=== PATIENT | male | born 1955 | race Caucasian/White ===

== ENCOUNTER 2019-10-07 15:04 | Inpatient (IN) ==
[2019-10-07] MEDS ORDERED: 0.9 % Sodium Chloride 1,000 ML IVC ONE ×2 (15:17→16:37)
[2019-10-07] MEDS ORDERED: Pantoprazole 40 MG VIAL IVP ONE (15:25)
[2019-10-07] MEDS ORDERED: cefTRIAXone 1,000 MG in Water for inj. (sterile) 10 ML IVP ONE (16:15)
[2019-10-07 16:24] LABS: INR 1.4
[2019-10-07 16:24] LABS: VBG HCO3 28 mEq/L (21-27); VBG PCO2 41 mmHg (41-51); VBG PH 7.43 pH Units (7.32-7.42); VBG PO2 55 mmHg (25-50)
[2019-10-07 16:26] LABS: Activated Partial Thrombo Time 28.7 Seconds (26.0-36.0)
[2019-10-07 16:27] LABS: Basophils % 0.2 %; Eosinophils % 0.2 %; Hematocrit 27.4 % (37.5-50.1); Hemoglobin 9.6 g/dL (12.9-16.9)
[2019-10-07 16:29] LABS: Immature Platelets 22.8 % (1.1-6.1); Lymphocytes # 0.7 K/mcL (0.6-4.6); Mean Corpuscular Hemoglobin 37.1 pg (28.0-33.3); Mean Corpuscular Volume 105.8 fL (83.0-100.0); Mean Platelet Volume 12.1 fL (9.4-12.4); Monocytes # 0.5 K/mcL (0.0-1.3); Monocytes % 8.7 %; Neutrophils # 4.9 K/mcL (1.6-8.9); Nucleated Red Blood Cells 4.2 /100 WBC (0); Red Blood Count 2.59 M/mcL (4.19-5.50); Red Cell Distribution Width 14.1 % (11.5-14.5); Segmented Neutrophils % 78.9 %; White Blood Count 6.2 K/mcL (4.3-11.1)
[2019-10-07 16:48] LABS: Acetaminophen < 10 mcg/mL (10-20); Alanine Aminotransferase 44 Units/L (7-52); Albumin 3.4 g/dL (3.5-5.7); Albumin/Globulin Ratio 1.2 (1.1-2.2); Alkaline Phosphatase 136 Units/L (34-104); Aspartate Amino Transferase 150 Units/L (13-39); BUN/Creatinine Ratio 29 (6-26); Bilirubin,Indirect 2.1 mg/dL (0.0-1.0); Bilirubin,Total 5.1 mg/dL (0.3-1.0); Blood Urea Nitrogen 16 mg/dL (8-23); Calcium 8.7 mg/dL (8.6-10.3); Carbon Dioxide 26 mEq/L (23-29); Chloride 88 mEq/L (98-107); Creatine Kinase 139 Units/L (30-223); Ethanol < 10 mg/dL (Less than 10); Globulin 2.8 g/dL (2.4-3.5); Glucose 138 mg/dL (70-105); Lipase 283 Units/L (11-82); Magnesium 1.6 mg/dL (1.6-2.6); Osmolality,Calculated 271 (280-300); Potassium 2.3 mEq/L (3.5-5.1); Sodium 129 mEq/L (136-145); Total Protein 6.2 g/dL (6.4-8.9); Troponin I 0.05 ng/mL (< 0.04); eGFR For African Americans > 60 (> 60); eGFR For Non-African Americans > 60 (> 60)
[2019-10-07 16:53] LABS: Platelet Count 88 K/mcL (140-400)
[2019-10-07 16:54] LABS: Large Platelets Present (Not Present); Platelet Estimate Decreased (Normal)
[2019-10-07] MEDS ORDERED: Potassium Effervescent 25 MEQ TABLET.EFF PO ONE (17:23)
[2019-10-07] MEDS ORDERED: Naloxone 0.4 MG/ML INJ IVP PRN (17:36)
[2019-10-08 02:16] LABS: Basophils % 0.2 %; Eosinophils % 0.5 %
[2019-10-08 02:18] LABS: Hematocrit 23.7 % (37.5-50.1); Immature Granulocytes % 1.1 % (0-4); Immature Platelets 18.2 % (1.1-6.1); Lymphocytes # 0.7 K/mcL (0.6-4.6); Lymphocytes % 11.3 %; Mean Corpuscular HGB Conc 33.8 g/dL (31.6-35.5); Mean Corpuscular Hemoglobin 35.9 pg (28.0-33.3); Mean Corpuscular Volume 106.3 fL (83.0-100.0); Mean Platelet Volume 12.2 fL (9.4-12.4); Monocytes # 0.7 K/mcL (0.0-1.3); Monocytes % 10.3 %; Nucleated Red Blood Cells 2.9 /100 WBC (0); Red Blood Count 2.23 M/mcL (4.19-5.50); Red Cell Distribution Width 14.2 % (11.5-14.5); Segmented Neutrophils % 76.6 %; White Blood Count 6.5 K/mcL (4.3-11.1)
[2019-10-08 02:29] LABS: BUN/Creatinine Ratio 35 (6-26); Blood Urea Nitrogen 14 mg/dL (8-23); Calcium 7.5 mg/dL (8.6-10.3); Carbon Dioxide 23 mEq/L (23-29); Chloride 94 mEq/L (98-107); Glucose 106 mg/dL (70-105); Osmolality,Calculated 271 (280-300); Potassium 2.7 mEq/L (3.5-5.1); Sodium 130 mEq/L (136-145); eGFR For African Americans > 60 (> 60); eGFR For Non-African Americans > 60 (> 60)
[2019-10-08 02:32] LABS: Platelet Count 78 K/mcL (140-400)
[2019-10-08] MEDS: Pantoprazole 40 MG VIAL IVP SCH ×2 (06:17→17:11)
[2019-10-08] MEDS ORDERED: Ondansetron 4 MG/2 ML VIAL IVP PRN (07:31)
[2019-10-08] MEDS ORDERED: *HR* LORazepam 2 MG/ML VIAL IVP PRN (07:40)
[2019-10-08 07:41] LABS: Alanine Aminotransferase 35 Units/L (7-52); Albumin 2.9 g/dL (3.5-5.7); Albumin/Globulin Ratio 1.3 (1.1-2.2); Alkaline Phosphatase 118 Units/L (34-104); Aspartate Amino Transferase 115 Units/L (13-39); Bilirubin,Direct 2.7 mg/dL (0.0-0.2); Bilirubin,Indirect 1.7 mg/dL (0.0-1.0); Bilirubin,Total 4.4 mg/dL (0.3-1.0); Globulin 2.2 g/dL (2.4-3.5); Total Protein 5.1 g/dL (6.4-8.9)
[2019-10-08 09:04] LABS: Bilirubin,Urine Moderate (Negative); Blood,Urine Large (Negative); Clarity,Urine Turbid (Clear); Color,Urine Brown (Yellow); Glucose,Urine (UA) Normal (Normal); Ketones,Urine 40 mg/dL (Negative); Leukocyte Esterase,Urine Moderate (Negative); Nitrite,Urine Negative (Negative); Protein,Urine 100 mg/dL (Neg-Trace); Urobilinogen,Urine >=8.0 mg/dL (Normal)
[2019-10-08] MEDS ORDERED: Magnesium Sulfate 1 GM/102 ML PIGGYBACK IVPB ONE (09:05)
[2019-10-08 09:09] LABS: Amorphous Sediment,Urine Few per hpf (None-Few)
[2019-10-08 09:12] LABS: Bacteria,Urine Moderate per hpf (None-Few); RBC,Urine TNTC per hpf (0-3); Squamous Epithelial Cell,Urine Few per hpf (None-Few)
[2019-10-08] MEDS: Thiamine (B-1) 100 MG TABLET PO SCH (09:58)
[2019-10-08] MEDS: Folic Acid 1 MG TABLET PO SCH (09:58)
[2019-10-08] MEDS: Vitamin B Complex/Vit C/Vit E 1 EACH TABLET PO SCH (09:58)
[2019-10-08] MEDS: traZODone 50 MG TABLET PO PRN (21:50)
[2019-10-08] MEDS: Gabapentin 300 MG CAPSULE PO SCH (21:50)
[2019-10-09 01:04] LABS: Basophils % 0.3 %; Eosinophils # 0.1 K/mcL (0.0-0.6); Eosinophils % 0.9 %; Hematocrit 21.6 % (37.5-50.1); Hemoglobin 7.7 g/dL (12.9-16.9); Immature Granulocytes % 1.5 % (0-4); Lymphocytes # 1.3 K/mcL (0.6-4.6); Lymphocytes % 16.2 %; Mean Corpuscular HGB Conc 35.6 g/dL (31.6-35.5); Mean Corpuscular Hemoglobin 38.1 pg (28.0-33.3); Mean Corpuscular Volume 106.9 fL (83.0-100.0); Mean Platelet Volume 11.6 fL (9.4-12.4); Monocytes # 1.1 K/mcL (0.0-1.3); Monocytes % 13.6 %; Neutrophils # 5.3 K/mcL (1.6-8.9); Nucleated Red Blood Cells 3.3 /100 WBC (0); Red Blood Count 2.02 M/mcL (4.19-5.50); Red Cell Distribution Width 14.2 % (11.5-14.5); Segmented Neutrophils % 67.5 %; White Blood Count 7.8 K/mcL (4.3-11.1)
[2019-10-09 01:05] LABS: Platelet Count 77 K/mcL (140-400)
[2019-10-09 01:15] LABS: BUN/Creatinine Ratio 29 (6-26); Blood Urea Nitrogen 15 mg/dL (8-23); Calcium 7.7 mg/dL (8.6-10.3); Carbon Dioxide 24 mEq/L (23-29); Chloride 97 mEq/L (98-107); Glucose 91 mg/dL (70-105); Osmolality,Calculated 274 (280-300); Potassium 3.4 mEq/L (3.5-5.1); Sodium 132 mEq/L (136-145); eGFR For African Americans > 60 (> 60); eGFR For Non-African Americans > 60 (> 60)
[2019-10-09] MEDS ORDERED: Potassium Chloride 20 MEQ, Lidocaine 1% 2 ML in 0.9 % Sodium Chloride 250 ML IVPB ONE (04:00)
[2019-10-09] MEDS: Pantoprazole 40 MG VIAL IVP SCH ×2 (06:56→17:27)
[2019-10-09] MEDS ORDERED: *HR* Propofol 200 MG/20 ML VIAL IVP ONE (07:45)
[2019-10-09] MEDS ORDERED: Lidocaine -MPF 2% 2 ML VIAL ONE (07:45)
[2019-10-09] MEDS ORDERED: Perflutren Lipid Microsphere 1.3 ML in 0.9 % Sodium Chloride 8.7 ML IVP PRN (08:45)
[2019-10-09] MEDS: Gabapentin 300 MG CAPSULE PO SCH ×3 (08:56→22:59)
[2019-10-09] MEDS: Thiamine (B-1) 100 MG TABLET PO SCH (08:56)
[2019-10-09] MEDS: Vitamin B Complex/Vit C/Vit E 1 EACH TABLET PO SCH (08:56)
[2019-10-09] MEDS: Folic Acid 1 MG TABLET PO SCH (08:57)
[2019-10-09 09:10] LABS: Troponin I 0.03 ng/mL (< 0.04)
[2019-10-09 10:54] LABS: Magnesium 1.6 mg/dL (1.6-2.6)
[2019-10-09] MEDS: traZODone 50 MG TABLET PO PRN (22:59)
[2019-10-10 01:59] LABS: Basophils % 0.6 %; Eosinophils # 0.1 K/mcL (0.0-0.6); Eosinophils % 1.1 %; Hematocrit 20.7 % (37.5-50.1); Hemoglobin 7.1 g/dL (12.9-16.9); Immature Granulocytes % 4.7 % (0-4); Lymphocytes # 1.4 K/mcL (0.6-4.6); Lymphocytes % 19.9 %; Mean Corpuscular HGB Conc 34.3 g/dL (31.6-35.5); Mean Corpuscular Hemoglobin 37.8 pg (28.0-33.3); Mean Corpuscular Volume 110.1 fL (83.0-100.0); Mean Platelet Volume 11.5 fL (9.4-12.4); Monocytes # 1.1 K/mcL (0.0-1.3); Monocytes % 15.5 %; Neutrophils # 4.1 K/mcL (1.6-8.9); Nucleated Red Blood Cells 7.6 /100 WBC (0); Platelet Count 113 K/mcL (140-400); Red Blood Count 1.88 M/mcL (4.19-5.50); Segmented Neutrophils % 58.2 %; White Blood Count 7.1 K/mcL (4.3-11.1)
[2019-10-10 02:09] LABS: INR 1.3; Prothrombin Time 14.2 Seconds (9.4-12.1)
[2019-10-10 02:20] LABS: Anisocytosis 1+ (Not Present); Large Platelets Present (Not Present); Macrocytosis Present (Not Present); Platelet Estimate Slight Decrease (Normal); Polychromasia 1+ (Not Present)
[2019-10-10 02:37] LABS: Alanine Aminotransferase 42 Units/L (7-52); Albumin 2.7 g/dL (3.5-5.7); Albumin/Globulin Ratio 1.2 (1.1-2.2); Alkaline Phosphatase 144 Units/L (34-104); Aspartate Amino Transferase 149 Units/L (13-39); BUN/Creatinine Ratio 33 (6-26); Bilirubin,Total 3.3 mg/dL (0.3-1.0); Blood Urea Nitrogen 13 mg/dL (8-23); Calcium 8.2 mg/dL (8.6-10.3); Carbon Dioxide 27 mEq/L (23-29); Chloride 99 mEq/L (98-107); Globulin 2.3 g/dL (2.4-3.5); Glucose 100 mg/dL (70-105); Magnesium 1.8 mg/dL (1.6-2.6); Osmolality,Calculated 276 (280-300); Phosphorous < 1.0 mg/dL (2.7-4.5); Potassium 3.3 mEq/L (3.5-5.1); Sodium 133 mEq/L (136-145); eGFR For African Americans > 60 (> 60); eGFR For Non-African Americans > 60 (> 60)
[2019-10-10] MEDS: Pantoprazole 40 MG VIAL IVP SCH ×2 (05:17→17:55)
[2019-10-10] MEDS ORDERED: Potassium Phosphate 44 MEQ in 0.9 % Sodium Chloride 250 ML IVPB ONE ×2 (07:29→15:49)
[2019-10-10] MEDS ORDERED: 0.9 % Sodium Chloride 250 ML ONE (08:42)
[2019-10-10 14:29] LABS: Hematocrit 24.8 % (37.5-50.1); Hemoglobin 8.2 g/dL (12.9-16.9); Mean Corpuscular HGB Conc 33.1 g/dL (31.6-35.5); Mean Corpuscular Hemoglobin 37.1 pg (28.0-33.3); Mean Corpuscular Volume 112.2 fL (83.0-100.0); Mean Platelet Volume 10.9 fL (9.4-12.4); Platelet Count 113 K/mcL (140-400); Red Blood Count 2.21 M/mcL (4.19-5.50); Red Cell Distribution Width 17.5 % (11.5-14.5); Segmented Neutrophils % 63.5 %; White Blood Count 6.4 K/mcL (4.3-11.1)
[2019-10-10 14:30] LABS: Basophils % 0.6 %; Eosinophils # 0.1 K/mcL (0.0-0.6); Eosinophils % 0.9 %; Lymphocytes # 0.9 K/mcL (0.6-4.6); Lymphocytes % 14.2 %; Monocytes # 1.1 K/mcL (0.0-1.3); Monocytes % 17.8 %; Neutrophils # 4.1 K/mcL (1.6-8.9); Nucleated Red Blood Cells 5.9 /100 WBC (0)
[2019-10-10 14:53] LABS: Alanine Aminotransferase 44 Units/L (7-52); Albumin 2.7 g/dL (3.5-5.7); Albumin/Globulin Ratio 1.2 (1.1-2.2); Alkaline Phosphatase 150 Units/L (34-104); Aspartate Amino Transferase 155 Units/L (13-39); BUN/Creatinine Ratio 31 (6-26); Blood Urea Nitrogen 11 mg/dL (8-23); Calcium 7.8 mg/dL (8.6-10.3); Carbon Dioxide 27 mEq/L (23-29); Chloride 102 mEq/L (98-107); Globulin 2.3 g/dL (2.4-3.5); Glucose 90 mg/dL (70-105); Osmolality,Calculated 281 (280-300); Phosphorous 1.8 mg/dL (2.7-4.5); Potassium 3.2 mEq/L (3.5-5.1); Sodium 136 mEq/L (136-145); eGFR For African Americans > 60 (> 60); eGFR For Non-African Americans > 60 (> 60)
[2019-10-10 14:54] LABS: % Iron Saturation 16 % (20-55); Iron 33 mcg/dL (65-175); Transferrin 147 mg/dL (203-362)
[2019-10-10 15:08] LABS: Anisocytosis 1+ (Not Present); Macrocytosis Present (Not Present); Platelet Estimate Decreased (Normal); Polychromasia 1+ (Not Present)
[2019-10-10 15:13] LABS: Ferritin 1023 ng/mL (20-250)
[2019-10-10 15:21] LABS: Hepatitis B Surface Antigen Nonreactive (Nonreactive)
[2019-10-10 15:22] LABS: ABG Base Excess 3 mEq/L (-2 to 3); ABG HCO3 27 mEq/L (21-27); ABG Oxygen Saturation 93 % (95-98); ABG PCO2 40 mmHg (35-45); ABG PH 7.44 pH Units (7.32-7.45); ABG PO2 63 mmHg (85-104); ABG TCO2 28 mEq/L (20-26)
[2019-10-10 15:51] LABS: Hepatitis B Core IgM Nonreactive (Nonreactive)
[2019-10-10 15:54] LABS: Hepatitis A Antibody IgM Nonreactive (Nonreactive)
[2019-10-10] MEDS ORDERED: Lidocaine -MPF 2% 2 ML VIAL ONE (16:58)
[2019-10-10] MEDS ORDERED: *HR* Propofol 200 MG/20 ML VIAL IVP ONE (17:00)
[2019-10-10] MEDS: Folic Acid 1 MG TABLET PO SCH (17:44)
[2019-10-10] MEDS: Gabapentin 300 MG CAPSULE PO SCH ×3 (17:45→22:05)
[2019-10-10] MEDS: Thiamine (B-1) 100 MG TABLET PO SCH (17:46)
[2019-10-10] MEDS: Vitamin B Complex/Vit C/Vit E 1 EACH TABLET PO SCH (17:46)
[2019-10-10 19:21] LABS: Hepatitis C Virus Antibody Reactive (Nonreactive)
[2019-10-10 19:27] LABS: Hemoglobin 9.8 g/dL (12.9-16.9)
[2019-10-10] MEDS: Lactulose Oral Soln 20 GM/30 ML UDC PO SCH (22:05)
[2019-10-10 23:07] LABS: Hematocrit 26.8 % (37.5-50.1); Hemoglobin 8.8 g/dL (12.9-16.9)
[2019-10-11 02:46] LABS: Hemoglobin 8.8 g/dL (12.9-16.9); Mean Corpuscular Volume 107.6 fL (83.0-100.0); Platelet Count 111 K/mcL (140-400); Red Cell Distribution Width 20.6 % (11.5-14.5); Segmented Neutrophils % 58.3 %
[2019-10-11 02:48] LABS: Basophils # 0.1 K/mcL (0.0-0.2); Basophils % 0.7 %; Eosinophils # 0.1 K/mcL (0.0-0.6); Eosinophils % 0.7 %; Hematocrit 26.9 % (37.5-50.1); Immature Granulocytes % 2.8 % (0-4); Immature Platelets 11.7 % (1.1-6.1); Lymphocytes # 1.2 K/mcL (0.6-4.6); Lymphocytes % 17.2 %; Mean Corpuscular HGB Conc 32.7 g/dL (31.6-35.5); Mean Corpuscular Hemoglobin 35.2 pg (28.0-33.3); Mean Platelet Volume 11.4 fL (9.4-12.4); Monocytes # 1.5 K/mcL (0.0-1.3); Monocytes % 20.3 %; Neutrophils # 4.2 K/mcL (1.6-8.9); Nucleated Red Blood Cells 2.9 /100 WBC (0); White Blood Count 7.2 K/mcL (4.3-11.1)
[2019-10-11 03:11] LABS: Alanine Aminotransferase 47 Units/L (7-52); Albumin 2.6 g/dL (3.5-5.7); Albumin/Globulin Ratio 1.1 (1.1-2.2); Alkaline Phosphatase 144 Units/L (34-104); Aspartate Amino Transferase 160 Units/L (13-39); BUN/Creatinine Ratio 26 (6-26); Bilirubin,Total 2.8 mg/dL (0.3-1.0); Blood Urea Nitrogen 11 mg/dL (8-23); Calcium 7.3 mg/dL (8.6-10.3); Carbon Dioxide 24 mEq/L (23-29); Chloride 105 mEq/L (98-107); Globulin 2.3 g/dL (2.4-3.5); Glucose 96 mg/dL (70-105); Magnesium 1.6 mg/dL (1.6-2.6); Osmolality,Calculated 281 (280-300); Phosphorous 3.2 mg/dL (2.7-4.5); Potassium 4.1 mEq/L (3.5-5.1); Sodium 136 mEq/L (136-145); Total Protein 4.9 g/dL (6.4-8.9); eGFR For African Americans > 60 (> 60); eGFR For Non-African Americans > 60 (> 60)
[2019-10-11 03:29] LABS: Anisocytosis 2+ (Not Present); Macrocytosis Present (Not Present); Platelet Estimate Slight Decrease (Normal); Polychromasia 1+ (Not Present)
[2019-10-11] MEDS: Pantoprazole 40 MG VIAL IVP SCH ×2 (05:07→18:36)
[2019-10-11] MEDS: Thiamine (B-1) 100 MG TABLET PO SCH (08:24)
[2019-10-11] MEDS: Vitamin B Complex/Vit C/Vit E 1 EACH TABLET PO SCH (08:24)
[2019-10-11] MEDS: Folic Acid 1 MG TABLET PO SCH (08:25)
[2019-10-11] MEDS: Gabapentin 300 MG CAPSULE PO SCH ×3 (08:25→21:14)
[2019-10-11] MEDS: Lactulose Oral Soln 20 GM/30 ML UDC PO SCH ×2 (08:25→21:14)
[2019-10-11 14:20] LABS: Hematocrit 27.5 % (37.5-50.1)
[2019-10-12 01:20] LABS: Eosinophils # 0.1 K/mcL (0.0-0.6); Hematocrit 27.5 % (37.5-50.1); Hemoglobin 8.7 g/dL (12.9-16.9); Mean Corpuscular HGB Conc 31.6 g/dL (31.6-35.5); Mean Corpuscular Hemoglobin 35.4 pg (28.0-33.3); Mean Corpuscular Volume 111.8 fL (83.0-100.0); Mean Platelet Volume 11.3 fL (9.4-12.4); Nucleated Red Blood Cells 0.6 /100 WBC (0); Platelet Count 130 K/mcL (140-400); Red Blood Count 2.46 M/mcL (4.19-5.50); Red Cell Distribution Width 21.7 % (11.5-14.5); White Blood Count 6.3 K/mcL (4.3-11.1)
[2019-10-12 01:28] LABS: INR 1.3
[2019-10-12 01:33] LABS: Alanine Aminotransferase 46 Units/L (7-52); Albumin 2.7 g/dL (3.5-5.7); Albumin/Globulin Ratio 1.2 (1.1-2.2); Alkaline Phosphatase 132 Units/L (34-104); Aspartate Amino Transferase 139 Units/L (13-39); BUN/Creatinine Ratio 20 (6-26); Bilirubin,Total 2.8 mg/dL (0.3-1.0); Blood Urea Nitrogen 7 mg/dL (8-23); Calcium 7.4 mg/dL (8.6-10.3); Carbon Dioxide 22 mEq/L (23-29); Chloride 107 mEq/L (98-107); Globulin 2.3 g/dL (2.4-3.5); Glucose 87 mg/dL (70-105); Osmolality,Calculated 279 (280-300); Potassium 4.2 mEq/L (3.5-5.1); Sodium 136 mEq/L (136-145); eGFR For African Americans > 60 (> 60); eGFR For Non-African Americans > 60 (> 60)
[2019-10-12 02:08] LABS: Anisocytosis 2+ (Not Present); Lymphocytes # 2.3 K/mcL (0.6-4.6); Macrocytosis Present (Not Present); Monocytes # 0.1 K/mcL (0.0-1.3); Neutrophils # 3.8 K/mcL (1.6-8.9); Platelet Estimate Normal (Normal); Polychromasia 1+ (Not Present)
[2019-10-12] MEDS: Pantoprazole 40 MG VIAL IVP SCH (06:04)
[2019-10-12] MEDS ORDERED: Calcium Gluconate 1gm/50mL 1 GM/50 ML BAG IVPB ONE (10:15)
[2019-10-12] MEDS ORDERED: *HR* Propofol 500 MG/50 ML BOTTLE IVP ONE (10:45)
[2019-10-12] MEDS ORDERED: 0.9 % Sodium Chloride 10 ML PF VIAL IR ONE (10:45)
[2019-10-12] MEDS ORDERED: Ondansetron 4 MG/2 ML VIAL IVP ONE (10:45)
[2019-10-12] MEDS ORDERED: Lidocaine -MPF 2% 5 ML VIAL SQ ONE (10:45)
[2019-10-12] MEDS: Thiamine (B-1) 100 MG TABLET PO SCH (16:04)
[2019-10-12] MEDS: Vitamin B Complex/Vit C/Vit E 1 EACH TABLET PO SCH (16:04)
[2019-10-12] MEDS: Folic Acid 1 MG TABLET PO SCH (16:04)
[2019-10-12] MEDS: Gabapentin 300 MG CAPSULE PO SCH ×3 (16:05→20:47)
[2019-10-12] MEDS: Lactulose Oral Soln 20 GM/30 ML UDC PO SCH ×2 (16:05→20:47)
[2019-10-12 16:44] LABS: Magnesium 1.7 mg/dL (1.6-2.6); Phosphorous 2.6 mg/dL (2.7-4.5)
[2019-10-13 06:43] LABS: Basophils # 0.1 K/mcL (0.0-0.2); Basophils % 0.6 %; Eosinophils % 0.5 %; Hematocrit 29.7 % (37.5-50.1); Hemoglobin 9.6 g/dL (12.9-16.9); Lymphocytes # 1.2 K/mcL (0.6-4.6); Lymphocytes % 14.5 %; Mean Corpuscular HGB Conc 32.3 g/dL (31.6-35.5); Mean Corpuscular Volume 108.4 fL (83.0-100.0); Mean Platelet Volume 12.5 fL (9.4-12.4); Monocytes # 1.7 K/mcL (0.0-1.3); Monocytes % 20.3 %; Neutrophils # 5.2 K/mcL (1.6-8.9); Nucleated Red Blood Cells 0.2 /100 WBC (0); Platelet Count 118 K/mcL (140-400); Red Blood Count 2.74 M/mcL (4.19-5.50); Red Cell Distribution Width 20.4 % (11.5-14.5); Segmented Neutrophils % 63.1 %; White Blood Count 8.3 K/mcL (4.3-11.1)
[2019-10-13 07:01] LABS: BUN/Creatinine Ratio 14 (6-26); Blood Urea Nitrogen 5 mg/dL (8-23); Calcium 8.2 mg/dL (8.6-10.3); Carbon Dioxide 22 mEq/L (23-29); Chloride 106 mEq/L (98-107); Glucose 100 mg/dL (70-105); Osmolality,Calculated 273 (280-300); Potassium 4.5 mEq/L (3.5-5.1); Sodium 133 mEq/L (136-145); eGFR For African Americans > 60 (> 60); eGFR For Non-African Americans > 60 (> 60)
[2019-10-13 07:02] LABS: Magnesium 1.4 mg/dL (1.6-2.6); Phosphorous 2.5 mg/dL (2.7-4.5)
[2019-10-13 08:10] LABS: Macrocytosis Present (Not Present); Platelet Estimate Normal (Normal)
[2019-10-13] MEDS: Lactulose Oral Soln 20 GM/30 ML UDC PO SCH ×2 (08:15→21:26)
[2019-10-13] MEDS: Thiamine (B-1) 100 MG TABLET PO SCH (08:18)
[2019-10-13] MEDS: Gabapentin 300 MG CAPSULE PO SCH ×3 (08:18→21:25)
[2019-10-13] MEDS: Folic Acid 1 MG TABLET PO SCH (08:18)
[2019-10-13] MEDS: Vitamin B Complex/Vit C/Vit E 1 EACH TABLET PO SCH (08:18)
[2019-10-13 10:43] LABS: AFP Tumor Marker Non-Pregnant 8 ng/mL (0-9); ANA IgG by ELISA NONE DETECTED (None Detected); F-Actin (sm muscle) Ab IgG 8 Units (0-19)
[2019-10-13 10:51] LABS: Serine Protease-3 Antibody 1 AU/mL (0-19)
[2019-10-14] MEDS: Gabapentin 300 MG CAPSULE PO SCH ×3 (09:39→20:35)
[2019-10-14] MEDS: Folic Acid 1 MG TABLET PO SCH (09:40)
[2019-10-14] MEDS: Thiamine (B-1) 100 MG TABLET PO SCH (09:40)
[2019-10-14] MEDS: Lactulose Oral Soln 20 GM/30 ML UDC PO SCH ×2 (09:40→20:35)
[2019-10-14] MEDS: Vitamin B Complex/Vit C/Vit E 1 EACH TABLET PO SCH (09:40)
[2019-10-15 01:51] LABS: Hematocrit 31.4 % (37.5-50.1)
[2019-10-15] MEDS: Gabapentin 300 MG CAPSULE PO SCH ×3 (08:21→19:47)
[2019-10-15] MEDS: Vitamin B Complex/Vit C/Vit E 1 EACH TABLET PO SCH (08:21)
[2019-10-15] MEDS: Lactulose Oral Soln 20 GM/30 ML UDC PO SCH ×2 (08:22→19:47)
[2019-10-15] MEDS: Folic Acid 1 MG TABLET PO SCH (08:22)
[2019-10-15] MEDS: Thiamine (B-1) 100 MG TABLET PO SCH (08:22)
[2019-10-15 14:34] LABS: Bilirubin,Urine Negative (Negative); Blood,Urine Negative (Negative); Clarity,Urine Clear (Clear); Color,Urine Yellow (Yellow); Glucose,Urine (UA) Normal (Normal); Ketones,Urine Negative (Negative); Leukocyte Esterase,Urine Negative (Negative); Nitrite,Urine Negative (Negative); Protein,Urine Negative (Neg-Trace); Specific Gravity,Urine 1.013 (1.010-1.025)
[2019-10-16] MEDS: Folic Acid 1 MG TABLET PO SCH (07:53)
[2019-10-16] MEDS: Vitamin B Complex/Vit C/Vit E 1 EACH TABLET PO SCH (07:53)
[2019-10-16] MEDS: Thiamine (B-1) 100 MG TABLET PO SCH (07:53)
[2019-10-16] MEDS: Lactulose Oral Soln 20 GM/30 ML UDC PO SCH ×2 (07:53→22:55)
[2019-10-16] MEDS: Gabapentin 300 MG CAPSULE PO SCH ×3 (07:53→22:57)
[2019-10-17 07:41] VITALS: BP 120/83
[2019-10-17] MEDS: Lactulose Oral Soln 20 GM/30 ML UDC PO SCH (09:57)
[2019-10-17] MEDS: Folic Acid 1 MG TABLET PO SCH (09:57)
[2019-10-17] MEDS: Vitamin B Complex/Vit C/Vit E 1 EACH TABLET PO SCH (09:57)
[2019-10-17] MEDS: Thiamine (B-1) 100 MG TABLET PO SCH (09:57)
[2019-10-17] MEDS: Gabapentin 300 MG CAPSULE PO SCH (09:57)
== END 2019-10-17 12:18 | DRG 378 ==
LOC: 2ANU 15:04 → EMEROOARM 15:04 → SUATTDRO 17:29 → 2ANU 18:39 → SUATTDRO 10-09 14:18
PROVIDERS: ADMIT Internal Medicine; ATTEND Student in an Organized Health Care Education/Training Program
PROC: ENDOEBX (2019-10-10 19:40)

== ENCOUNTER 2019-11-14 14:40 | Observation (INO) ==
[2019-11-14] MEDS ORDERED: Potassium Chloride 40 MEQ, Lidocaine 1% 2 ML in 0.9 % Sodium Chloride 500 ML IVPB ONE (15:15)
[2019-11-14] MEDS ORDERED: Naloxone 0.4 MG/ML INJ IVP PRN (15:19)
[2019-11-14] MEDS ORDERED: Ondansetron ODT 4 MG TAB.RAPDIS SL PRN (15:19)
[2019-11-14 16:00] LABS: BUN/Creatinine Ratio 16 (6-26); Blood Urea Nitrogen 13 mg/dL (8-23); Calcium 8.5 mg/dL (8.6-10.3); Carbon Dioxide 28 mEq/L (23-29); Chloride 99 mEq/L (98-107); Glucose 103 mg/dL (70-105); Magnesium 1.4 mg/dL (1.6-2.6); Osmolality,Calculated 284 (280-300); Potassium 3.2 mEq/L (3.5-5.1); Sodium 137 mEq/L (136-145); eGFR For African Americans > 60 (> 60); eGFR For Non-African Americans > 60 (> 60)
[2019-11-14 16:01] LABS: Albumin 3.9 g/dL (3.5-5.7); Albumin/Globulin Ratio 1.3 (1.1-2.2); Bilirubin,Direct 0.5 mg/dL (0.0-0.2); Bilirubin,Indirect 0.9 mg/dL (0.0-1.0); Bilirubin,Total 1.4 mg/dL (0.3-1.0); Globulin 2.9 g/dL (2.4-3.5); Total Protein 6.8 g/dL (6.4-8.9)
[2019-11-14 18:33] LABS: Eosinophils % 2.3 %; Lymphocytes % 21.6 %
[2019-11-14 18:35] LABS: Basophils % 0.6 %; Eosinophils # 0.1 K/mcL (0.0-0.6); Hematocrit 33.9 % (37.5-50.1); Hemoglobin 11.1 g/dL (12.9-16.9); Immature Granulocytes % 0.2 % (0-4); Immature Platelets 13.1 % (1.1-6.1); Lymphocytes # 1.1 K/mcL (0.6-4.6); Mean Corpuscular HGB Conc 32.7 g/dL (31.6-35.5); Mean Corpuscular Hemoglobin 33.2 pg (28.0-33.3); Mean Corpuscular Volume 101.5 fL (83.0-100.0); Mean Platelet Volume 12.7 fL (9.4-12.4); Monocytes # 0.8 K/mcL (0.0-1.3); Monocytes % 14.8 %; Neutrophils # 3.2 K/mcL (1.6-8.9); Red Blood Count 3.34 M/mcL (4.19-5.50); Red Cell Distribution Width 17.3 % (11.5-14.5); Segmented Neutrophils % 60.5 %; White Blood Count 5.2 K/mcL (4.3-11.1)
[2019-11-14 18:36] LABS: Platelet Count 50 K/mcL (140-400)
[2019-11-14] MEDS: Lactulose Oral Soln 20 GM/30 ML UDC PO SCH (20:43)
[2019-11-15 01:16] LABS: Basophils % 0.4 %; Eosinophils # 0.2 K/mcL (0.0-0.6); Eosinophils % 3.9 %; Hematocrit 33.7 % (37.5-50.1); Hemoglobin 10.7 g/dL (12.9-16.9); Immature Granulocytes % 0.2 % (0-4); Lymphocytes # 1.2 K/mcL (0.6-4.6); Lymphocytes % 25.4 %; Mean Corpuscular HGB Conc 31.8 g/dL (31.6-35.5); Mean Corpuscular Hemoglobin 31.9 pg (28.0-33.3); Mean Corpuscular Volume 100.6 fL (83.0-100.0); Monocytes # 0.4 K/mcL (0.0-1.3); Monocytes % 7.9 %; Red Blood Count 3.35 M/mcL (4.19-5.50); Red Cell Distribution Width 17.5 % (11.5-14.5); Segmented Neutrophils % 62.2 %; White Blood Count 4.6 K/mcL (4.3-11.1)
[2019-11-15 01:22] LABS: Neutrophils # 2.9 K/mcL (1.6-8.9); Platelet Count 59 K/mcL (140-400)
[2019-11-15 01:48] LABS: BUN/Creatinine Ratio 20 (6-26); Blood Urea Nitrogen 12 mg/dL (8-23); Calcium 8.3 mg/dL (8.6-10.3); Carbon Dioxide 23 mEq/L (23-29); Chloride 106 mEq/L (98-107); Glucose 111 mg/dL (70-105); Magnesium 2.7 mg/dL (1.6-2.6); Osmolality,Calculated 286 (280-300); Potassium 3.3 mEq/L (3.5-5.1); Sodium 138 mEq/L (136-145); eGFR For African Americans > 60 (> 60); eGFR For Non-African Americans > 60 (> 60)
[2019-11-15] MEDS ORDERED: Potassium Chloride Elixir 20 MEQ/15 ML UDC PO ONE (07:34)
[2019-11-15 10:15] LABS: Bacteria,Urine Few per hpf (None-Few); Bilirubin,Urine Negative (Negative); Blood,Urine Negative (Negative); Clarity,Urine Clear (Clear); Color,Urine Yellow (Yellow); Glucose,Urine (UA) Normal (Normal); Hyaline Casts,Urine Moderate per lpf (None Seen); Ketones,Urine Negative (Negative); Leukocyte Esterase,Urine Negative (Negative); Mucus,Urine Few per lpf (None-Few); Nitrite,Urine Negative (Negative); Protein,Urine 30 mg/dL (Neg-Trace); RBC,Urine 0-3 per hpf (0-3); Specific Gravity,Urine 1.029 (1.010-1.025); Squamous Epithelial Cell,Urine Few per hpf (None-Few); Urobilinogen,Urine >=8.0 mg/dL (Normal)
[2019-11-15] MEDS ORDERED: Acetaminophen 325 MG TABLET PO ONE (11:06)
[2019-11-15] MEDS: Nicotine 14 MG PATCH.TD24 TD SCH (11:13)
[2019-11-15] MEDS: Gabapentin 300 MG CAPSULE PO SCH ×3 (11:14→21:45)
[2019-11-15] MEDS: Lactulose Oral Soln 20 GM/30 ML UDC PO SCH ×2 (11:14→21:45)
[2019-11-15 11:54] LABS: Amphetamine Screen,Urine Positive ng/mL (Cutoff=1000); Barbiturate Screen,Urine Negative ng/mL (Cutoff=200); Benzodiazepines Screen,Urine Negative ng/mL (Cutoff=200); Cannabinoid Screen,Urine Positive ng/mL (Cutoff = 50); Cocaine Screen,Urine Negative ng/mL (Cutoff= 300); Opiate Screen,Urine Negative ng/mL (Cutoff=300); Phencyclidine Screen,Urine Negative ng/mL (Cutoff=25)
[2019-11-15] MEDS ORDERED: Ketorolac 15 MG/ML VIAL IVP PRN (12:36)
[2019-11-16] MEDS: Lactulose Oral Soln 20 GM/30 ML UDC PO SCH (08:14)
[2019-11-16] MEDS: Nicotine 14 MG PATCH.TD24 TD SCH (08:15)
[2019-11-16] MEDS: Gabapentin 300 MG CAPSULE PO SCH (08:15)
[2019-11-16 11:20] VITALS: BP 136/95
== END 2019-11-16 15:13 | disposition home health service (06) ==
LOC: EMEROOARM 14:40 → 3BNU 14:40 → SUATTDRO 15:33 → 3BNU 16:46
PROVIDERS: ADMIT Pharmacist; ATTEND Internal Medicine

== ENCOUNTER 2019-12-16 02:40 | Inpatient (IN) ==
[2019-12-16 03:11] LABS: INR 1.3; Prothrombin Time 14.4 Seconds (9.4-12.1)
[2019-12-16 03:14] LABS: Activated Partial Thrombo Time 31.1 Seconds (26.0-36.0)
[2019-12-16 03:19] LABS: Amphetamine Screen,Urine Positive ng/mL (Cutoff=1000); Barbiturate Screen,Urine Negative ng/mL (Cutoff=200); Benzodiazepines Screen,Urine Negative ng/mL (Cutoff=200); Cannabinoid Screen,Urine Positive ng/mL (Cutoff = 50); Cocaine Screen,Urine Negative ng/mL (Cutoff= 300); Opiate Screen,Urine Negative ng/mL (Cutoff=300); Phencyclidine Screen,Urine Negative ng/mL (Cutoff=25)
[2019-12-16 03:20] LABS: Acetaminophen < 10 mcg/mL (10-20); Salicylate < 2.5 mg/dL (15.0-30.0)
[2019-12-16 03:30] LABS: Bilirubin,Urine Large (Negative); Blood,Urine Trace-intact (Negative); Clarity,Urine Clear (Clear); Color,Urine Amber (Yellow); Glucose,Urine (UA) 100 mg/dL (Normal); Ketones,Urine 40 mg/dL (Negative); Leukocyte Esterase,Urine Negative (Negative); Nitrite,Urine Positive (Negative); PH,Urine 6.5 pH Units (5.0-8.0); Protein,Urine 100 mg/dL (Neg-Trace); Specific Gravity,Urine 1.015 (1.010-1.025); Urobilinogen,Urine >=8.0 mg/dL (Normal)
[2019-12-16 03:31] LABS: RBC,Urine 0-3 per hpf (0-3); Squamous Epithelial Cell,Urine Few per hpf (None-Few)
[2019-12-16 03:32] LABS: Bacteria,Urine Few per hpf (None-Few); Hyaline Casts,Urine Few per lpf (None Seen)
[2019-12-16 03:34] LABS: Alanine Aminotransferase 21 Units/L (7-52); Albumin 3.9 g/dL (3.5-5.7); Albumin/Globulin Ratio 1.2 (1.1-2.2); Alkaline Phosphatase 106 Units/L (34-104); Aspartate Amino Transferase 78 Units/L (13-39); BUN/Creatinine Ratio 17 (6-26); Bilirubin,Direct 0.7 mg/dL (0.0-0.2); Bilirubin,Indirect 1.2 mg/dL (0.0-1.0); Bilirubin,Total 1.9 mg/dL (0.3-1.0); Blood Urea Nitrogen 16 mg/dL (8-23); Calcium 8.5 mg/dL (8.6-10.3); Carbon Dioxide 25 mEq/L (23-29); Chloride 88 mEq/L (98-107); Ethanol < 10 mg/dL (Less than 10); Globulin 3.3 g/dL (2.4-3.5); Glucose 65 mg/dL (70-105); Osmolality,Calculated 271 (280-300); Potassium 3.1 mEq/L (3.5-5.1); Sodium 131 mEq/L (136-145); Total Protein 7.2 g/dL (6.4-8.9); Troponin I < 0.03 ng/mL (< 0.04); eGFR For African Americans > 60 (> 60); eGFR For Non-African Americans > 60 (> 60)
[2019-12-16 03:35] LABS: Thyroid Stimulating Hormone 3.896 mcIU/mL (0.340-5.600)
[2019-12-16 03:58] LABS: Eosinophils % 0.1 %; Immature Granulocytes % 0.3 % (0-4); Monocytes % 8.7 %
[2019-12-16 04:00] LABS: Basophils % 0.1 %; Hematocrit 37.9 % (37.5-50.1); Hemoglobin 12.8 g/dL (12.9-16.9); Immature Platelets 19.9 % (1.1-6.1); Lymphocytes % 12.9 %; Mean Corpuscular HGB Conc 33.8 g/dL (31.6-35.5); Mean Corpuscular Hemoglobin 31.1 pg (28.0-33.3); Mean Corpuscular Volume 92.2 fL (83.0-100.0); Monocytes # 0.7 K/mcL (0.0-1.3); Neutrophils # 6.1 K/mcL (1.6-8.9); Red Blood Count 4.11 M/mcL (4.19-5.50); Red Cell Distribution Width 16.2 % (11.5-14.5); Segmented Neutrophils % 77.9 %; White Blood Count 7.8 K/mcL (4.3-11.1)
[2019-12-16 04:29] LABS: Platelet Count 21 K/mcL (140-400)
[2019-12-16 04:34] LABS: Platelet Estimate Decreased (Normal)
[2019-12-16] MEDS ORDERED: cefTRIAXone 1,000 MG in 0.9 % Sodium Chloride Mini Bag 100 ML IVPB ONE (06:07)
[2019-12-16] MEDS ORDERED: 0.9 % Sodium Chloride 1,000 ML IVC ONE (10:40)
[2019-12-16] MEDS: Lactulose Oral Soln 20 GM/30 ML UDC PO SCH ×2 (11:02→19:20)
[2019-12-16] MEDS: Folic Acid 1 MG TABLET PO SCH (11:03)
[2019-12-17] MEDS: cefTRIAXone 1,000 MG in Water for inj. (sterile) 10 ML IVP SCH (08:39)
[2019-12-17] MEDS: Lactulose Oral Soln 20 GM/30 ML UDC PO SCH ×2 (08:39→20:12)
[2019-12-17] MEDS: Folic Acid 1 MG TABLET PO SCH (08:39)
[2019-12-17] MEDS ORDERED: traZODone 50 MG TABLET PO SCH (09:00)
[2019-12-17 09:31] LABS: Basophils % 0.5 %; Eosinophils # 0.1 K/mcL (0.0-0.6); Eosinophils % 1.4 %; Hematocrit 38.4 % (37.5-50.1); Hemoglobin 12.9 g/dL (12.9-16.9); Immature Granulocytes % 0.2 % (0-4); Immature Platelets 20.8 % (1.1-6.1); Lymphocytes % 22.4 %; Mean Corpuscular HGB Conc 33.6 g/dL (31.6-35.5); Mean Corpuscular Hemoglobin 31.1 pg (28.0-33.3); Mean Corpuscular Volume 92.5 fL (83.0-100.0); Monocytes # 0.4 K/mcL (0.0-1.3); Monocytes % 9.8 %; Neutrophils # 2.9 K/mcL (1.6-8.9); Red Blood Count 4.15 M/mcL (4.19-5.50); Red Cell Distribution Width 16.1 % (11.5-14.5); Segmented Neutrophils % 65.7 %; White Blood Count 4.4 K/mcL (4.3-11.1)
[2019-12-17 09:35] LABS: Platelet Count 22 K/mcL (140-400)
[2019-12-17 09:50] LABS: Alanine Aminotransferase 16 Units/L (7-52); Albumin 3.4 g/dL (3.5-5.7); Albumin/Globulin Ratio 1.2 (1.1-2.2); Alkaline Phosphatase 117 Units/L (34-104); Aspartate Amino Transferase 52 Units/L (13-39); BUN/Creatinine Ratio 19 (6-26); Bilirubin,Direct 0.2 mg/dL (0.0-0.2); Bilirubin,Indirect 0.7 mg/dL (0.0-1.0); Bilirubin,Total 0.9 mg/dL (0.3-1.0); Blood Urea Nitrogen 12 mg/dL (8-23); Calcium 8.9 mg/dL (8.6-10.3); Carbon Dioxide 28 mEq/L (23-29); Chloride 96 mEq/L (98-107); Globulin 2.8 g/dL (2.4-3.5); Glucose 101 mg/dL (70-105); Osmolality,Calculated 276 (280-300); Potassium 3.4 mEq/L (3.5-5.1); Sodium 133 mEq/L (136-145); Total Protein 6.2 g/dL (6.4-8.9); eGFR For African Americans > 60 (> 60); eGFR For Non-African Americans > 60 (> 60)
[2019-12-17] MEDS ORDERED: Potassium Chloride Elixir 20 MEQ/15 ML UDC PO ONE (11:22)
[2019-12-18 03:35] LABS: Basophils % 0.5 %; Hemoglobin 12.1 g/dL (12.9-16.9); Red Cell Distribution Width 16.2 % (11.5-14.5)
[2019-12-18 03:38] LABS: Eosinophils # 0.1 K/mcL (0.0-0.6); Eosinophils % 1.1 %; Hematocrit 35.3 % (37.5-50.1); Immature Granulocytes % 0.2 % (0-4); Immature Platelets 18.3 % (1.1-6.1); Lymphocytes # 0.9 K/mcL (0.6-4.6); Mean Corpuscular HGB Conc 34.3 g/dL (31.6-35.5); Mean Corpuscular Hemoglobin 31.5 pg (28.0-33.3); Mean Corpuscular Volume 91.9 fL (83.0-100.0); Monocytes # 0.5 K/mcL (0.0-1.3); Monocytes % 10.9 %; Neutrophils # 2.9 K/mcL (1.6-8.9); Red Blood Count 3.84 M/mcL (4.19-5.50); Segmented Neutrophils % 66.3 %; White Blood Count 4.4 K/mcL (4.3-11.1)
[2019-12-18 03:57] LABS: Platelet Count 26 K/mcL (140-400)
[2019-12-18 06:35] LABS: BUN/Creatinine Ratio 18 (6-26); Blood Urea Nitrogen 11 mg/dL (8-23); Calcium 9.1 mg/dL (8.6-10.3); Carbon Dioxide 25 mEq/L (23-29); Chloride 99 mEq/L (98-107); Glucose 99 mg/dL (70-105); Osmolality,Calculated 271 (280-300); Potassium 4.1 mEq/L (3.5-5.1); Sodium 131 mEq/L (136-145); eGFR For African Americans > 60 (> 60); eGFR For Non-African Americans > 60 (> 60)
[2019-12-18] MEDS: Folic Acid 1 MG TABLET PO SCH (07:33)
[2019-12-18] MEDS: cefTRIAXone 1,000 MG in Water for inj. (sterile) 10 ML IVP SCH (07:34)
[2019-12-18] MEDS: Lactulose Oral Soln 20 GM/30 ML UDC PO SCH (07:34)
[2019-12-18 13:28] LABS: % Iron Saturation 10 % (20-55); Iron 36 mcg/dL (65-175); Transferrin 252 mg/dL (203-362)
[2019-12-18 13:45] LABS: Ferritin 147 ng/mL (20-250)
[2019-12-18 13:53] LABS: Folate > 22.3 ng/mL (3.0-16.0); Vitamin B12 277 pg/mL (250-1100)
[2019-12-18 15:00] VITALS: BP 150/94
[2019-12-18] MEDS ORDERED: traZODone 50 MG TABLET PO SCH (21:00)
== END 2019-12-18 19:12 | disposition home or self-care (01) | DRG 689 ==
LOC: 3ANU 02:40 → EMEROOARM 02:40 → SUATTDRO 06:28 → 3ANU 06:49
PROVIDERS: ADMIT Internal Medicine; ATTEND Internal Medicine

== ENCOUNTER 2019-12-21 11:36 | Observation (INO) ==
[2019-12-21 12:15] LABS: VBG HCO3 24 mEq/L (21-27); VBG PCO2 36 mmHg (41-51); VBG PH 7.43 pH Units (7.32-7.42); VBG PO2 38 mmHg (25-50)
[2019-12-21 12:36] LABS: Alanine Aminotransferase 101 Units/L (7-52); Albumin 4.3 g/dL (3.5-5.7); Albumin/Globulin Ratio 1.2 (1.1-2.2); Alkaline Phosphatase 106 Units/L (34-104); Aspartate Amino Transferase 218 Units/L (13-39); BUN/Creatinine Ratio 5 (6-26); Bilirubin,Direct 0.3 mg/dL (0.0-0.2); Bilirubin,Indirect 0.4 mg/dL (0.0-1.0); Bilirubin,Total 0.7 mg/dL (0.3-1.0); Blood Urea Nitrogen 3 mg/dL (8-23); Calcium 9.4 mg/dL (8.6-10.3); Carbon Dioxide 23 mEq/L (23-29); Chloride 99 mEq/L (98-107); Globulin 3.5 g/dL (2.4-3.5); Glucose 95 mg/dL (70-105); Lipase 25 Units/L (11-82); Osmolality,Calculated 276 (280-300); Potassium 3.3 mEq/L (3.5-5.1); Sodium 135 mEq/L (136-145); Total Protein 7.8 g/dL (6.4-8.9); Troponin I < 0.03 ng/mL (< 0.04); eGFR For African Americans > 60 (> 60); eGFR For Non-African Americans > 60 (> 60)
[2019-12-21 13:00] LABS: Eosinophils # 0.1 K/mcL (0.0-0.6); Hematocrit 42.7 % (37.5-50.1); Mean Corpuscular HGB Conc 32.8 g/dL (31.6-35.5); Mean Corpuscular Hemoglobin 29.6 pg (28.0-33.3); Mean Corpuscular Volume 90.3 fL (83.0-100.0); Mean Platelet Volume 10.6 fL (9.4-12.4); Platelet Count 164 K/mcL (140-400); Red Blood Count 4.73 M/mcL (4.19-5.50); Red Cell Distribution Width 16.6 % (11.5-14.5); White Blood Count 4.9 K/mcL (4.3-11.1)
[2019-12-21 13:05] LABS: Monocytes # 0.8 K/mcL (0.0-1.3); Neutrophils # 2.1 K/mcL (1.6-8.9)
[2019-12-21 13:06] LABS: Anisocytosis 1+ (Not Present); Platelet Estimate Normal (Normal); Poikilocytosis 1+ (Not Present)
[2019-12-21 16:31] LABS: Amphetamine Screen,Urine Positive ng/mL (Cutoff=1000); Barbiturate Screen,Urine Negative ng/mL (Cutoff=200); Benzodiazepines Screen,Urine Negative ng/mL (Cutoff=200); Cannabinoid Screen,Urine Negative ng/mL (Cutoff = 50); Cocaine Screen,Urine Negative ng/mL (Cutoff= 300); Opiate Screen,Urine Negative ng/mL (Cutoff=300); Phencyclidine Screen,Urine Negative ng/mL (Cutoff=25)
[2019-12-21 16:56] LABS: Acetaminophen < 10 mcg/mL (10-20); Ethanol 313 mg/dL (Less than 10); Salicylate < 2.5 mg/dL (15.0-30.0)
[2019-12-21] MEDS ORDERED: 0.9 % Sodium Chloride 1,000 ML IVC ONE (17:13)
[2019-12-21] MEDS ORDERED: *HR* LORazepam 1 MG TABLET PO ONE (17:27)
[2019-12-21] MEDS ORDERED: *HR* LORazepam 2 MG/ML VIAL IVP PRN ×3 (18:09)
[2019-12-21] MEDS ORDERED: *HR* Promethazine 25 MG/ML VIAL IM PRN (18:17)
[2019-12-21] MEDS ORDERED: Naloxone 0.4 MG/ML INJ IVP PRN (18:17)
[2019-12-21] MEDS: Thiamine (B-1) 100 MG TABLET PO SCH (18:57)
[2019-12-21] MEDS: Folic Acid 1 MG TABLET PO SCH (18:57)
[2019-12-21] MEDS: Vitamin B Complex/Vit C/Vit E 1 EACH TABLET PO SCH (18:57)
[2019-12-21] MEDS: Famotidine 20 MG/2 ML VIAL IVP SCH (18:58)
[2019-12-21] MEDS: Nicotine 21 MG PATCH.TD24 TD SCH (18:59)
[2019-12-21] MEDS: Levalbuterol Neb 1.25 MG/3 ML IH SCH ×2 (19:41→23:48)
[2019-12-22 00:10] LABS: Bilirubin,Urine Negative (Negative); Blood,Urine Negative (Negative); Clarity,Urine Clear (Clear); Color,Urine Light-Yellow (Yellow); Glucose,Urine (UA) Normal (Normal); Ketones,Urine Negative (Negative); Leukocyte Esterase,Urine Negative (Negative); Nitrite,Urine Negative (Negative); PH,Urine 6.5 pH Units (5.0-8.0); Protein,Urine Negative (Neg-Trace); Specific Gravity,Urine 1.005 (1.010-1.025); Urobilinogen,Urine Normal (Normal)
[2019-12-22 02:00] LABS: Hematocrit 38.8 % (37.5-50.1); Hemoglobin 13.3 g/dL (12.9-16.9); Mean Corpuscular HGB Conc 34.3 g/dL (31.6-35.5); Mean Corpuscular Hemoglobin 30.9 pg (28.0-33.3); Mean Corpuscular Volume 90.2 fL (83.0-100.0); Mean Platelet Volume 10.5 fL (9.4-12.4); Platelet Count 153 K/mcL (140-400); Red Cell Distribution Width 16.7 % (11.5-14.5); White Blood Count 4.9 K/mcL (4.3-11.1)
[2019-12-22 02:12] LABS: BUN/Creatinine Ratio 7 (6-26); Blood Urea Nitrogen 4 mg/dL (8-23); Calcium 8.8 mg/dL (8.6-10.3); Carbon Dioxide 21 mEq/L (23-29); Chloride 104 mEq/L (98-107); Chol/HDL Ratio 3.2 (0-4.9); Cholesterol 151 mg/dL (< 200); Glucose 92 mg/dL (70-105); HDL Cholesterol 47 mg/dL (40-59); LDL Cholesterol,Calculated 86 mg/dL (< 100); Magnesium 1.2 mg/dL (1.6-2.6); Osmolality,Calculated 281 (280-300); Phosphorous 2.9 mg/dL (2.7-4.5); Potassium 3.8 mEq/L (3.5-5.1); Sodium 137 mEq/L (136-145); Triglycerides 91 mg/dL (< 150); eGFR For African Americans > 60 (> 60); eGFR For Non-African Americans > 60 (> 60)
[2019-12-22] MEDS: traZODone 50 MG TABLET PO SCH ×2 (02:15→20:54)
[2019-12-22] MEDS: Levalbuterol Neb 1.25 MG/3 ML IH SCH ×3 (03:41→10:55)
[2019-12-22] MEDS: Famotidine 20 MG/2 ML VIAL IVP SCH (05:21)
[2019-12-22] MEDS: *HR* Heparin 5,000 UNIT/ML VIAL SQ SCH ×2 (05:22→16:48)
[2019-12-22] MEDS ORDERED: Magnesium Sulfate 1 GM/102 ML PIGGYBACK IVPB ONE (07:54)
[2019-12-22] MEDS: Folic Acid 1 MG TABLET PO SCH (08:06)
[2019-12-22] MEDS: Vitamin B Complex/Vit C/Vit E 1 EACH TABLET PO SCH (08:06)
[2019-12-22] MEDS: Thiamine (B-1) 100 MG TABLET PO SCH (08:06)
[2019-12-22] MEDS ORDERED: Levalbuterol Neb 1.25 MG/3 ML IH PRN (10:51)
[2019-12-22] MEDS: Nicotine 21 MG PATCH.TD24 TD SCH (20:53)
[2019-12-22] MEDS: Lactulose Oral Soln 20 GM/30 ML UDC PO SCH (20:55)
[2019-12-23 02:33] LABS: Hematocrit 38.2 % (37.5-50.1); Hemoglobin 12.5 g/dL (12.9-16.9); Mean Corpuscular HGB Conc 32.7 g/dL (31.6-35.5); Mean Corpuscular Hemoglobin 30.8 pg (28.0-33.3); Mean Corpuscular Volume 94.1 fL (83.0-100.0); Mean Platelet Volume 10.7 fL (9.4-12.4); Platelet Count 130 K/mcL (140-400); Red Blood Count 4.06 M/mcL (4.19-5.50); Red Cell Distribution Width 16.8 % (11.5-14.5); White Blood Count 3.6 K/mcL (4.3-11.1)
[2019-12-23 02:57] LABS: Alanine Aminotransferase 48 Units/L (7-52); Albumin 3.5 g/dL (3.5-5.7); Albumin/Globulin Ratio 1.2 (1.1-2.2); Alkaline Phosphatase 94 Units/L (34-104); Aspartate Amino Transferase 67 Units/L (13-39); BUN/Creatinine Ratio 15 (6-26); Bilirubin,Total 0.7 mg/dL (0.3-1.0); Blood Urea Nitrogen 9 mg/dL (8-23); Calcium 8.8 mg/dL (8.6-10.3); Carbon Dioxide 25 mEq/L (23-29); Chloride 100 mEq/L (98-107); Globulin 2.9 g/dL (2.4-3.5); Glucose 95 mg/dL (70-105); Magnesium 1.4 mg/dL (1.6-2.6); Osmolality,Calculated 272 (280-300); Potassium 3.9 mEq/L (3.5-5.1); Sodium 132 mEq/L (136-145); Total Protein 6.4 g/dL (6.4-8.9); eGFR For African Americans > 60 (> 60); eGFR For Non-African Americans > 60 (> 60)
[2019-12-23] MEDS: *HR* Heparin 5,000 UNIT/ML VIAL SQ SCH ×2 (03:49→16:21)
[2019-12-23] MEDS ORDERED: Acetaminophen 325 MG TABLET PO ONE (04:39)
[2019-12-23] MEDS: Thiamine (B-1) 100 MG TABLET PO SCH (09:58)
[2019-12-23] MEDS: Folic Acid 1 MG TABLET PO SCH (09:58)
[2019-12-23] MEDS: Lactulose Oral Soln 20 GM/30 ML UDC PO SCH ×2 (09:58→20:46)
[2019-12-23] MEDS: Vitamin B Complex/Vit C/Vit E 1 EACH TABLET PO SCH (09:58)
[2019-12-23] MEDS ORDERED: Artificial Tears SOLN 15 ML BOTTLE BOTH EYES PRN (13:29)
[2019-12-23] MEDS: Nicotine 21 MG PATCH.TD24 TD SCH (17:50)
[2019-12-23] MEDS: traZODone 50 MG TABLET PO SCH (20:46)
[2019-12-24 01:53] LABS: BUN/Creatinine Ratio 18 (6-26); Blood Urea Nitrogen 10 mg/dL (8-23); Calcium 9.2 mg/dL (8.6-10.3); Carbon Dioxide 24 mEq/L (23-29); Chloride 100 mEq/L (98-107); Glucose 92 mg/dL (70-105); Osmolality,Calculated 275 (280-300); Potassium 4.2 mEq/L (3.5-5.1); Sodium 133 mEq/L (136-145); eGFR For African Americans > 60 (> 60); eGFR For Non-African Americans > 60 (> 60)
[2019-12-24] MEDS: *HR* Heparin 5,000 UNIT/ML VIAL SQ SCH ×2 (05:09→16:29)
[2019-12-24] MEDS: Vitamin B Complex/Vit C/Vit E 1 EACH TABLET PO SCH (07:55)
[2019-12-24] MEDS: Lactulose Oral Soln 20 GM/30 ML UDC PO SCH ×2 (07:55→20:08)
[2019-12-24] MEDS: Thiamine (B-1) 100 MG TABLET PO SCH (07:55)
[2019-12-24] MEDS: Folic Acid 1 MG TABLET PO SCH (07:55)
[2019-12-24] MEDS: Nicotine 21 MG PATCH.TD24 TD SCH (16:29)
[2019-12-24] MEDS: traZODone 50 MG TABLET PO SCH (20:08)
[2019-12-24] MEDS: Acetaminophen 325 MG TABLET PO PRN (22:13)
[2019-12-25] MEDS: *HR* Heparin 5,000 UNIT/ML VIAL SQ SCH (05:23)
[2019-12-25] MEDS: Acetaminophen 325 MG TABLET PO PRN (05:29)
[2019-12-25] MEDS ORDERED: Ondansetron 4 MG/2 ML VIAL IVP PRN (05:31)
[2019-12-25] MEDS: Folic Acid 1 MG TABLET PO SCH (10:07)
[2019-12-25] MEDS: Lactulose Oral Soln 20 GM/30 ML UDC PO SCH (10:07)
[2019-12-25] MEDS: Vitamin B Complex/Vit C/Vit E 1 EACH TABLET PO SCH (10:07)
[2019-12-25] MEDS: Thiamine (B-1) 100 MG TABLET PO SCH (10:07)
[2019-12-25 10:16] LABS: Hematocrit 39.3 % (37.5-50.1); Hemoglobin 12.6 g/dL (12.9-16.9); Mean Corpuscular HGB Conc 32.1 g/dL (31.6-35.5); Mean Corpuscular Hemoglobin 29.7 pg (28.0-33.3); Mean Corpuscular Volume 92.7 fL (83.0-100.0); Mean Platelet Volume 11.6 fL (9.4-12.4); Platelet Count 184 K/mcL (140-400); Red Blood Count 4.24 M/mcL (4.19-5.50); Red Cell Distribution Width 16.7 % (11.5-14.5); White Blood Count 5.2 K/mcL (4.3-11.1)
[2019-12-25 10:29] LABS: BUN/Creatinine Ratio 21 (6-26); Blood Urea Nitrogen 13 mg/dL (8-23); Calcium 10.1 mg/dL (8.6-10.3); Carbon Dioxide 23 mEq/L (23-29); Chloride 100 mEq/L (98-107); Glucose 91 mg/dL (70-105); Osmolality,Calculated 274 (280-300); Potassium 4.5 mEq/L (3.5-5.1); Sodium 132 mEq/L (136-145); eGFR For African Americans > 60 (> 60); eGFR For Non-African Americans > 60 (> 60)
[2019-12-25 15:00] VITALS: BP 120/82
== END 2019-12-25 17:00 | disposition home health service (06) ==
LOC: 3BNU 11:36 → EMEROOARM 11:36 → SUATTDRO 17:59 → 3BNU 18:30
PROVIDERS: ADMIT Family Medicine; ATTEND Internal Medicine

== ENCOUNTER 2020-07-30 08:18 | Observation (INO) ==
[2020-07-30] MEDS ORDERED: Ondansetron 4 MG/2 ML VIAL IVP ONE (08:26)
[2020-07-30] MEDS ORDERED: 0.9 % Sodium Chloride 1,000 ML IVC ONE ×2 (08:26→09:17)
[2020-07-30] MEDS ORDERED: Isovue-370 500 ML BOTTLE IVP ONE ×2 (08:27→08:42)
[2020-07-30] MEDS ORDERED: Pantoprazole 40 MG VIAL IVP ONE (08:45)
[2020-07-30 08:59] LABS: Eosinophils % 0.1 %; Hematocrit 38.8 % (37.5-50.1); Monocytes % 7.3 %; Red Blood Count 4.17 M/mcL (4.19-5.50); Red Cell Distribution Width 18.6 % (11.5-14.5)
[2020-07-30 09:01] LABS: Basophils % 0.3 %; Hemoglobin 12.9 g/dL (12.9-16.9); Immature Granulocytes % 0.6 % (0-4); Immature Platelets 14.5 % (1.1-6.1); Lymphocytes # 1.2 K/mcL (0.6-4.6); Lymphocytes % 10.7 %; Mean Corpuscular HGB Conc 33.2 g/dL (31.6-35.5); Mean Corpuscular Hemoglobin 30.9 pg (28.0-33.3); Monocytes # 0.8 K/mcL (0.0-1.3); White Blood Count 11.3 K/mcL (4.3-11.1)
[2020-07-30] MEDS ORDERED: Octreotide 50 MCG/ML INJ IVP ONE ×2 (09:02→09:34)
[2020-07-30 09:07] LABS: INR 1.2; Prothrombin Time 13.4 Seconds (9.4-12.1)
[2020-07-30] MEDS ORDERED: Octreotide 400 MCG in 0.9 % Sodium Chloride 100 ML IVC SCH (09:15)
[2020-07-30] MEDS ORDERED: Piperacillin/Tazobactam 3.375 GM in 0.9 % Sodium Chloride Mini Bag 100 ML IVPB ONE (09:16)
[2020-07-30 09:20] LABS: Neutrophils # 9.2 K/mcL (1.6-8.9); Platelet Count 85 K/mcL (140-400)
[2020-07-30 09:21] LABS: Large Platelets Present (Not Present); Platelet Estimate Decreased (Normal)
[2020-07-30 09:24] LABS: Alanine Aminotransferase 22 Units/L (7-52); Albumin 4.5 g/dL (3.5-5.7); Albumin/Globulin Ratio 1.4 (1.1-2.2); Alkaline Phosphatase 73 Units/L (34-104); Aspartate Amino Transferase 38 Units/L (13-39); BUN/Creatinine Ratio 54 (6-26); Bilirubin,Direct 0.2 mg/dL (0.0-0.2); Bilirubin,Indirect 0.6 mg/dL (0.0-1.0); Bilirubin,Total 0.8 mg/dL (0.3-1.0); Blood Urea Nitrogen 57 mg/dL (8-23); Calcium 10.3 mg/dL (8.6-10.3); Carbon Dioxide 26 mEq/L (23-29); Chloride 93 mEq/L (98-107); Globulin 3.3 g/dL (2.4-3.5); Glucose 104 mg/dL (70-105); Lipase 24 Units/L (11-82); Osmolality,Calculated 294 (280-300); Potassium 3.6 mEq/L (3.5-5.1); Sodium 134 mEq/L (136-145); Total Protein 7.8 g/dL (6.4-8.9); Troponin I < 0.03 ng/mL (< 0.04); eGFR For African Americans > 60 (> 60); eGFR For Non-African Americans > 60 (> 60)
[2020-07-30] MEDS ORDERED: Vancomycin 1,500 MG/265 ML IV.SOLN IVPB ONE (09:40)
[2020-07-30 09:44] LABS: Bilirubin,Urine Negative (Negative); Blood,Urine Negative (Negative); Clarity,Urine Turbid (Clear); Color,Urine Light-Orange (Yellow); Glucose,Urine (UA) Normal (Normal); Hyaline Casts,Urine Many per lpf (None Seen); Ketones,Urine 10 mg/dL (Negative); Leukocyte Esterase,Urine Negative (Negative); Mucus,Urine Few per lpf (None-Few); Nitrite,Urine Negative (Negative); Protein,Urine 50 mg/dL (Neg-Trace); RBC,Urine 0-3 per hpf (0-3); Renal Epithelial Cells,Urine Few per hpf (None-Few); Specific Gravity,Urine 1.023 (1.010-1.025); Squamous Epithelial Cell,Urine Few per hpf (None-Few); Transitional Epi Cells,Urine Few per hpf (None-Few); Urobilinogen,Urine Normal (Normal); WBC,Urine 0-3 per hpf (0-3)
[2020-07-30] MEDS ORDERED: Naloxone 0.4 MG/ML INJ IVP PRN (11:02)
[2020-07-30] MEDS ORDERED: Lidocaine -MPF 2% 5 ML VIAL ONE (13:38)
[2020-07-30] MEDS ORDERED: *HR* LORazepam 2 MG/ML VIAL IVP PRN ×3 (14:24)
[2020-07-30] MEDS: Pantoprazole 40 MG in 0.9 % Sodium Chloride Mini Bag 100 ML IVC SCH ×2 (15:34→19:54)
[2020-07-30] MEDS: Nicotine 21 MG PATCH.TD24 TD SCH (17:38)
[2020-07-30] MEDS: *HR* OxyCODONE/APAP 5/325 TABLET PO PRN (17:39)
[2020-07-30] MEDS ORDERED: traZODone 50 MG TABLET PO PRN (21:43)
[2020-07-31 00:43] LABS: Basophils % 0.5 %; Eosinophils # 0.1 K/mcL (0.0-0.6); Eosinophils % 1.1 %; Hematocrit 27.2 % (37.5-50.1); Immature Granulocytes % 0.2 % (0-4); Immature Platelets 14.7 % (1.1-6.1); Lymphocytes # 0.8 K/mcL (0.6-4.6); Lymphocytes % 15.1 %; Mean Corpuscular HGB Conc 33.1 g/dL (31.6-35.5); Mean Corpuscular Volume 93.8 fL (83.0-100.0); Monocytes # 0.4 K/mcL (0.0-1.3); Monocytes % 6.4 %; Neutrophils # 4.2 K/mcL (1.6-8.9); Red Cell Distribution Width 18.3 % (11.5-14.5); Segmented Neutrophils % 76.7 %; White Blood Count 5.5 K/mcL (4.3-11.1)
[2020-07-31 00:44] LABS: Platelet Count 43 K/mcL (140-400)
[2020-07-31] MEDS: Pantoprazole 40 MG in 0.9 % Sodium Chloride Mini Bag 100 ML IVC SCH ×2 (00:51→06:11)
[2020-07-31 00:58] LABS: BUN/Creatinine Ratio 43 (6-26); Blood Urea Nitrogen 34 mg/dL (8-23); Calcium 8.2 mg/dL (8.6-10.3); Carbon Dioxide 26 mEq/L (23-29); Chloride 102 mEq/L (98-107); Glucose 103 mg/dL (70-105); Osmolality,Calculated 290 (280-300); Potassium 3.4 mEq/L (3.5-5.1); Sodium 136 mEq/L (136-145); eGFR For African Americans > 60 (> 60); eGFR For Non-African Americans > 60 (> 60)
[2020-07-31] MEDS: Pantoprazole 40 MG VIAL IVP SCH ×2 (09:18→17:23)
[2020-07-31] MEDS: Nicotine 21 MG PATCH.TD24 TD SCH (09:18)
[2020-07-31 10:44] VITALS: BP 109/79
[2020-07-31] MEDS: *HR* OxyCODONE/APAP 5/325 TABLET PO PRN (15:21)
== END 2020-07-31 21:58 | disposition home or self-care (01) ==
LOC: 2NENU 08:18 → EMEROOARM 08:18 → 2NENU 13:14
PROVIDERS: ADMIT Internal Medicine; ATTEND Internal Medicine

== ENCOUNTER 2020-08-22 18:27 | Observation (INO) ==
[2020-08-22] MEDS ORDERED: *HR* LORazepam 2 MG/ML VIAL IM ONE (18:53)
[2020-08-22 19:38] LABS: Basophils # 0.1 K/mcL (0.0-0.2); Basophils % 1.8 %; Eosinophils % 0.8 %; Hematocrit 31.6 % (37.5-50.1); Immature Granulocytes % 0.2 % (0-4); Lymphocytes # 2.3 K/mcL (0.6-4.6); Lymphocytes % 46.5 %; Mean Corpuscular HGB Conc 32.6 g/dL (31.6-35.5); Mean Corpuscular Hemoglobin 28.6 pg (28.0-33.3); Mean Corpuscular Volume 87.8 fL (83.0-100.0); Mean Platelet Volume 9.9 fL (9.4-12.4); Monocytes # 0.5 K/mcL (0.0-1.3); Monocytes % 9.5 %; Neutrophils # 2.1 K/mcL (1.6-8.9); Platelet Count 216 K/mcL (140-400); Red Cell Distribution Width 19.3 % (11.5-14.5); Segmented Neutrophils % 41.2 %
[2020-08-22 19:39] LABS: Hemoglobin 10.3 g/dL (12.9-16.9)
[2020-08-22 19:58] LABS: Acetaminophen < 10 mcg/mL (10-20); BUN/Creatinine Ratio 16 (6-26); Blood Urea Nitrogen 13 mg/dL (8-23); Calcium 8.9 mg/dL (8.6-10.3); Carbon Dioxide 17 mEq/L (23-29); Chloride 104 mEq/L (98-107); Chol/HDL Ratio 3.5 (0-4.9); Cholesterol 202 mg/dL (< 200); Ethanol 485 mg/dL (Less than 10); Glucose 89 mg/dL (70-105); HDL Cholesterol 58 mg/dL (40-59); LDL Cholesterol,Calculated 108 mg/dL (< 100); Osmolality,Calculated 292 (280-300); Potassium 4.1 mEq/L (3.5-5.1); Salicylate < 2.5 mg/dL (15.0-30.0); Sodium 141 mEq/L (136-145); Triglycerides 180 mg/dL (< 150); eGFR For African Americans > 60 (> 60); eGFR For Non-African Americans > 60 (> 60)
[2020-08-22] MEDS ORDERED: *HR* LORazepam 2 MG/ML VIAL IVP PRN ×2 (21:00)
[2020-08-22 21:17] LABS: Estimated Average Glucose 123 mg/dl; Hemoglobin A1C 5.9 %
[2020-08-22] MEDS: Vitamin B Complex/Vit C/Vit E 1 EACH TABLET PO SCH (21:38)
[2020-08-22] MEDS: Folic Acid 1 MG TABLET PO SCH (21:38)
[2020-08-22] MEDS: Thiamine (B-1) 100 MG TABLET PO SCH (21:38)
[2020-08-22 22:04] LABS: Bilirubin,Urine Negative (Negative); Blood,Urine Trace (Negative); Clarity,Urine Clear (Clear); Color,Urine Light-Yellow (Yellow); Glucose,Urine (UA) Normal (Normal); Hyaline Casts,Urine Few per lpf (None Seen); Ketones,Urine 10 mg/dL (Negative); Leukocyte Esterase,Urine Negative (Negative); Mucus,Urine Few per lpf (None-Few); Nitrite,Urine Negative (Negative); PH,Urine 5.5 pH Units (5.0-8.0); Protein,Urine 30 mg/dL (Neg-Trace); RBC,Urine 0-3 per hpf (0-3); Specific Gravity,Urine 1.022 (1.010-1.025); Urobilinogen,Urine Normal (Normal); WBC,Urine 0-3 per hpf (0-3)
[2020-08-22 22:14] LABS: Amphetamine Screen,Urine Negative ng/mL (Cutoff=1000); Barbiturate Screen,Urine Negative ng/mL (Cutoff=200); Benzodiazepines Screen,Urine Negative ng/mL (Cutoff=200); Cannabinoid Screen,Urine Positive ng/mL (Cutoff = 50); Cocaine Screen,Urine Positive ng/mL (Cutoff= 300); Opiate Screen,Urine Negative ng/mL (Cutoff=300); Phencyclidine Screen,Urine Negative ng/mL (Cutoff=25)
[2020-08-22] MEDS ORDERED: Naloxone 0.4 MG/ML INJ IVP PRN (22:33)
[2020-08-22] MEDS ORDERED: Melatonin 3 MG TABLET PO PRN (22:33)
[2020-08-22] MEDS ORDERED: Ondansetron 4 MG/2 ML VIAL IVP PRN (22:33)
[2020-08-22] MEDS: *HR* LORazepam 2 MG/ML VIAL IVP PRN (23:08)
[2020-08-22] MEDS: Nicotine 14 MG PATCH.TD24 TD SCH (23:13)
[2020-08-23 03:33] LABS: Basophils # 0.1 K/mcL (0.0-0.2); Basophils % 1.4 %; Eosinophils # 0.1 K/mcL (0.0-0.6); Eosinophils % 1.7 %; Hematocrit 30.5 % (37.5-50.1); Hemoglobin 9.6 g/dL (12.9-16.9); Lymphocytes # 1.7 K/mcL (0.6-4.6); Lymphocytes % 46.8 %; Mean Corpuscular HGB Conc 31.5 g/dL (31.6-35.5); Mean Corpuscular Hemoglobin 28.3 pg (28.0-33.3); Mean Platelet Volume 10.4 fL (9.4-12.4); Monocytes # 0.4 K/mcL (0.0-1.3); Monocytes % 11.8 %; Neutrophils # 1.4 K/mcL (1.6-8.9); Platelet Count 159 K/mcL (140-400); Red Blood Count 3.39 M/mcL (4.19-5.50); Red Cell Distribution Width 19.3 % (11.5-14.5); Segmented Neutrophils % 38.3 %; White Blood Count 3.6 K/mcL (4.3-11.1)
[2020-08-23 03:43] LABS: INR 1.1; Prothrombin Time 12.4 Seconds (9.4-12.1)
[2020-08-23 03:53] LABS: BUN/Creatinine Ratio 17 (6-26); Blood Urea Nitrogen 13 mg/dL (8-23); Carbon Dioxide 24 mEq/L (23-29); Chloride 108 mEq/L (98-107); Chol/HDL Ratio 3.7 (0-4.9); Cholesterol 186 mg/dL (< 200); Glucose 92 mg/dL (70-105); HDL Cholesterol 50 mg/dL (40-59); LDL Cholesterol,Calculated 95 mg/dL (< 100); Magnesium 1.7 mg/dL (1.6-2.6); Osmolality,Calculated 286 (280-300); Potassium 3.7 mEq/L (3.5-5.1); Sodium 138 mEq/L (136-145); Triglycerides 204 mg/dL (< 150); eGFR For African Americans > 60 (> 60); eGFR For Non-African Americans > 60 (> 60)
[2020-08-23] MEDS: Nicotine 14 MG PATCH.TD24 TD SCH (08:20)
[2020-08-23] MEDS: Folic Acid 1 MG TABLET PO SCH (08:20)
[2020-08-23] MEDS: Vitamin B Complex/Vit C/Vit E 1 EACH TABLET PO SCH (08:20)
[2020-08-23] MEDS: Thiamine (B-1) 100 MG TABLET PO SCH (08:20)
[2020-08-23 10:57] VITALS: BP 156/89
[2020-08-23] MEDS: *HR* LORazepam 2 MG/ML VIAL IVP PRN (13:06)
[2020-08-23] MEDS ORDERED: Thiamine (B-1) 100 MG, Folic Acid 1 MG, MVI, adult with vitamin K 10 ML in 0.9 % Sodi... IVPB SCH (18:00)
== END 2020-08-23 20:25 | disposition home or self-care (01) ==
LOC: EMEROOARM 18:27 → 3BNU 18:27
PROVIDERS: ADMIT Internal Medicine; ATTEND Internal Medicine

== ENCOUNTER 2020-10-22 19:10 | Inpatient (IN) ==
[2020-10-22 20:18] LABS: Bilirubin,Urine Negative (Negative); Blood,Urine Negative (Negative); Clarity,Urine Clear (Clear); Color,Urine Light-Yellow (Yellow); Glucose,Urine (UA) Normal (Normal); Ketones,Urine Negative (Negative); Leukocyte Esterase,Urine Negative (Negative); Nitrite,Urine Negative (Negative); Protein,Urine Trace mg/dL (Neg-Trace); Specific Gravity,Urine 1.013 (1.010-1.025); Urobilinogen,Urine Normal (Normal)
[2020-10-22 20:30] LABS: Basophils # 0.1 K/mcL (0.0-0.2); Basophils % 0.7 %; Eosinophils # 0.1 K/mcL (0.0-0.6); Hematocrit 37.8 % (37.5-50.1); Hemoglobin 12.3 g/dL (12.9-16.9); Immature Granulocytes % 0.1 % (0-4); Lymphocytes # 2.2 K/mcL (0.6-4.6); Lymphocytes % 22.6 %; Mean Corpuscular HGB Conc 32.5 g/dL (31.6-35.5); Mean Corpuscular Hemoglobin 26.1 pg (28.0-33.3); Mean Corpuscular Volume 80.1 fL (83.0-100.0); Mean Platelet Volume 10.1 fL (9.4-12.4); Monocytes # 0.7 K/mcL (0.0-1.3); Monocytes % 7.2 %; Neutrophils # 6.6 K/mcL (1.6-8.9); Platelet Count 206 K/mcL (140-400); Red Blood Count 4.72 M/mcL (4.19-5.50); Red Cell Distribution Width 22.4 % (11.5-14.5); Segmented Neutrophils % 68.4 %; White Blood Count 9.6 K/mcL (4.3-11.1)
[2020-10-22 20:31] LABS: Alanine Aminotransferase 20 Units/L (7-52); Albumin 4.4 g/dL (3.5-5.7); Albumin/Globulin Ratio 1.3 (1.1-2.2); Alkaline Phosphatase 91 Units/L (34-104); Aspartate Amino Transferase 43 Units/L (13-39); BUN/Creatinine Ratio 25 (6-26); Bilirubin,Indirect 0.3 mg/dL (0.0-1.0); Bilirubin,Total 0.3 mg/dL (0.3-1.0); Blood Urea Nitrogen 18 mg/dL (8-23); Calcium 9.1 mg/dL (8.6-10.3); Carbon Dioxide 21 mEq/L (23-29); Chloride 106 mEq/L (98-107); Ethanol 369 mg/dL (Less than 10); Globulin 3.4 g/dL (2.4-3.5); Glucose 88 mg/dL (70-105); Osmolality,Calculated 295 (280-300); Potassium 4.2 mEq/L (3.5-5.1); Sodium 142 mEq/L (136-145); Total Protein 7.8 g/dL (6.4-8.9); eGFR For African Americans > 60 (> 60); eGFR For Non-African Americans > 60 (> 60)
[2020-10-22 20:40] LABS: Amphetamine Screen,Urine Negative ng/mL (Cutoff=1000); Barbiturate Screen,Urine Negative ng/mL (Cutoff=200); Benzodiazepines Screen,Urine Negative ng/mL (Cutoff=200); Cannabinoid Screen,Urine Negative ng/mL (Cutoff = 50); Cocaine Screen,Urine Negative ng/mL (Cutoff= 300); Opiate Screen,Urine Negative ng/mL (Cutoff=300); Phencyclidine Screen,Urine Negative ng/mL (Cutoff=25)
[2020-10-22] MEDS ORDERED: Thiamine (B-1) 100 MG, Folic Acid 1 MG, MVI, adult with vitamin K 10 ML in 0.9 % Sodi... IVPB ONE (21:00)
[2020-10-23] MEDS ORDERED: *HR* LORazepam 2 MG/ML VIAL IVP PRN (00:24)
[2020-10-23] MEDS ORDERED: Naloxone 0.4 MG/ML INJ IVP PRN (00:27)
[2020-10-23] MEDS: *HR* LORazepam 2 MG/ML VIAL IVP PRN ×2 (04:23→19:32)
[2020-10-23 05:58] LABS: Hematocrit 30.9 % (37.5-50.1); Mean Corpuscular Hemoglobin 25.3 pg (28.0-33.3); Mean Platelet Volume 10.1 fL (9.4-12.4); Platelet Count 124 K/mcL (140-400); Red Blood Count 3.91 M/mcL (4.19-5.50); Red Cell Distribution Width 21.7 % (11.5-14.5); White Blood Count 5.9 K/mcL (4.3-11.1)
[2020-10-23 06:00] LABS: Hemoglobin 9.9 g/dL (12.9-16.9)
[2020-10-23 06:15] LABS: BUN/Creatinine Ratio 32 (6-26); Blood Urea Nitrogen 20 mg/dL (8-23); Calcium 8.8 mg/dL (8.6-10.3); Carbon Dioxide 24 mEq/L (23-29); Chloride 101 mEq/L (98-107); Glucose 97 mg/dL (70-105); Magnesium 1.5 mg/dL (1.6-2.6); Osmolality,Calculated 287 (280-300); Phosphorous 2.6 mg/dL (2.7-4.5); Potassium 3.7 mEq/L (3.5-5.1); Sodium 137 mEq/L (136-145); eGFR For African Americans > 60 (> 60); eGFR For Non-African Americans > 60 (> 60)
[2020-10-23] MEDS ORDERED: Magnesium Sulfate 1 GM/102 ML PIGGYBACK IVPB ONE (07:58)
[2020-10-23] MEDS: Pantoprazole 40 MG VIAL IVP SCH (11:40)
[2020-10-23 11:55] LABS: Hematocrit 31.7 % (37.5-50.1); Hemoglobin 10.5 g/dL (12.9-16.9)
[2020-10-23] MEDS ORDERED: amLODIPine 5 MG TABLET PO PRN (17:13)
[2020-10-23] MEDS: Thiamine (B-1) 100 MG, Folic Acid 1 MG, MVI, adult with vitamin K 10 ML in 0.9 % Sodi... IVPB SCH (19:22)
[2020-10-24 01:27] LABS: Hematocrit 34.6 % (37.5-50.1); Hemoglobin 11.1 g/dL (12.9-16.9); Immature Platelets 6.4 % (1.1-6.1); Mean Corpuscular HGB Conc 32.1 g/dL (31.6-35.5); Mean Corpuscular Volume 77.9 fL (83.0-100.0); Mean Platelet Volume 10.4 fL (9.4-12.4); Red Blood Count 4.44 M/mcL (4.19-5.50); Red Cell Distribution Width 21.7 % (11.5-14.5); White Blood Count 5.4 K/mcL (4.3-11.1)
[2020-10-24 01:47] LABS: BUN/Creatinine Ratio 23 (6-26); Blood Urea Nitrogen 13 mg/dL (8-23); Calcium 9.5 mg/dL (8.6-10.3); Carbon Dioxide 22 mEq/L (23-29); Chloride 99 mEq/L (98-107); Glucose 87 mg/dL (70-105); Magnesium 1.8 mg/dL (1.6-2.6); Osmolality,Calculated 271 (280-300); Potassium 3.8 mEq/L (3.5-5.1); Sodium 131 mEq/L (136-145); eGFR For African Americans > 60 (> 60); eGFR For Non-African Americans > 60 (> 60)
[2020-10-24] MEDS: *HR* LORazepam 2 MG/ML VIAL IVP PRN (03:12)
[2020-10-24] MEDS ORDERED: 0.9 % Sodium Chloride 1,000 ML IVC SCH (03:15)
[2020-10-24] MEDS: Pantoprazole 40 MG VIAL IVP SCH (09:25)
[2020-10-24] MEDS: Thiamine (B-1) 100 MG, Folic Acid 1 MG, MVI, adult with vitamin K 10 ML in 0.9 % Sodi... IVPB SCH (22:06)
[2020-10-25 05:05] LABS: Hematocrit 34.8 % (37.5-50.1); Hemoglobin 10.9 g/dL (12.9-16.9); Immature Platelets 9.1 % (1.1-6.1); Mean Corpuscular HGB Conc 31.3 g/dL (31.6-35.5); Mean Corpuscular Hemoglobin 25.3 pg (28.0-33.3); Mean Corpuscular Volume 80.7 fL (83.0-100.0); Red Blood Count 4.31 M/mcL (4.19-5.50); Red Cell Distribution Width 21.5 % (11.5-14.5); White Blood Count 6.7 K/mcL (4.3-11.1)
[2020-10-25 05:21] LABS: BUN/Creatinine Ratio 17 (6-26); Blood Urea Nitrogen 12 mg/dL (8-23); Carbon Dioxide 23 mEq/L (23-29); Chloride 99 mEq/L (98-107); Glucose 88 mg/dL (70-105); Osmolality,Calculated 271 (280-300); Potassium 3.7 mEq/L (3.5-5.1); Sodium 131 mEq/L (136-145); eGFR For African Americans > 60 (> 60); eGFR For Non-African Americans > 60 (> 60)
[2020-10-25 09:11] LABS: Thyroid Stimulating Hormone 4.529 mcIU/mL (0.340-5.600)
[2020-10-25] MEDS: Pantoprazole 40 MG VIAL IVP SCH (10:12)
[2020-10-25] MEDS: Nicotine 7 MG PATCH.TD24 TD SCH (11:00)
[2020-10-25] MEDS ORDERED: *HR* LORazepam 0.5 MG TABLET PO ONE (13:35)
[2020-10-25] MEDS: *HR* LORazepam 2 MG/ML VIAL IVP PRN ×6 (15:25→21:17)
[2020-10-25] MEDS: Thiamine (B-1) 100 MG, Folic Acid 1 MG, MVI, adult with vitamin K 10 ML in 0.9 % Sodi... IVPB SCH (18:21)
[2020-10-25] MEDS ORDERED: Haloperidol Lactate 5 MG/ML VIAL IVP ONE (21:51)
[2020-10-26 08:43] LABS: Hemoglobin 10.2 g/dL (12.9-16.9)
[2020-10-26 08:45] LABS: Hematocrit 32.4 % (37.5-50.1); Mean Corpuscular HGB Conc 31.5 g/dL (31.6-35.5); Mean Corpuscular Hemoglobin 25.4 pg (28.0-33.3); Mean Corpuscular Volume 80.6 fL (83.0-100.0); Red Blood Count 4.02 M/mcL (4.19-5.50); Red Cell Distribution Width 21.5 % (11.5-14.5); White Blood Count 6.1 K/mcL (4.3-11.1)
[2020-10-26] MEDS: Pantoprazole 40 MG VIAL IVP SCH (08:58)
[2020-10-26 08:59] LABS: BUN/Creatinine Ratio 18 (6-26); Blood Urea Nitrogen 11 mg/dL (8-23); Calcium 9.7 mg/dL (8.6-10.3); Carbon Dioxide 26 mEq/L (23-29); Chloride 103 mEq/L (98-107); Glucose 101 mg/dL (70-105); Osmolality,Calculated 282 (280-300); Potassium 4.1 mEq/L (3.5-5.1); Sodium 136 mEq/L (136-145); eGFR For African Americans > 60 (> 60); eGFR For Non-African Americans > 60 (> 60)
[2020-10-26] MEDS: Nicotine 7 MG PATCH.TD24 TD SCH (08:59)
[2020-10-26 09:08] LABS: Platelet Count 68 K/mcL (140-400)
[2020-10-26 10:47] VITALS: BP 128/79; PULSE 97; TEMP 96.9; O2SAT 98
== END 2020-10-26 15:52 | disposition home or self-care (01) | DRG 775 ==
LOC: 3NENU 19:10 → EMEROOARM 19:10 → 3NENU 10-23 01:18 → SUATTDRO 10-25 14:48
PROVIDERS: ADMIT Internal Medicine; ATTEND Student in an Organized Health Care Education/Training Program

== ENCOUNTER 2021-01-25 06:00 | Inpatient (IN) ==
[2021-01-25] MEDS ORDERED: *HR* LORazepam 2 MG/ML VIAL IVP ONE ×2 (06:01→07:07)
[2021-01-25] MEDS ORDERED: 0.9 % Sodium Chloride 1,000 ML IVC ONE (06:01)
[2021-01-25] MEDS ORDERED: *HR* LORazepam 2 MG/ML VIAL IM ONE (06:06)
[2021-01-25 06:31] LABS: Eosinophils % 0.1 %; Immature Granulocytes % 0.3 % (0-4); Mean Corpuscular Volume 86.1 fL (83.0-100.0)
[2021-01-25 06:33] LABS: Basophils # 0.1 K/mcL (0.0-0.2); Basophils % 0.5 %; Hematocrit 35.4 % (37.5-50.1); Hemoglobin 10.8 g/dL (12.9-16.9); Immature Platelets 9.4 % (1.1-6.1); Lymphocytes # 2.4 K/mcL (0.6-4.6); Lymphocytes % 23.7 %; Mean Corpuscular HGB Conc 30.5 g/dL (31.6-35.5); Mean Corpuscular Hemoglobin 26.3 pg (28.0-33.3); Mean Platelet Volume 10.3 fL (9.4-12.4); Monocytes # 0.8 K/mcL (0.0-1.3); Monocytes % 7.9 %; Neutrophils # 6.8 K/mcL (1.6-8.9); Platelet Count 64 K/mcL (140-400); Red Blood Count 4.11 M/mcL (4.19-5.50); Segmented Neutrophils % 67.5 %
[2021-01-25 07:07] LABS: Alanine Aminotransferase 26 Units/L (7-52); Albumin 4.9 g/dL (3.5-5.7); Albumin/Globulin Ratio 1.5 (1.1-2.2); Alkaline Phosphatase 67 Units/L (34-104); Aspartate Amino Transferase 63 Units/L (13-39); BUN/Creatinine Ratio 25 (6-26); Bilirubin,Total 0.8 mg/dL (0.3-1.0); Blood Urea Nitrogen 21 mg/dL (8-23); Calcium 8.9 mg/dL (8.6-10.3); Carbon Dioxide 11 mEq/L (23-29); Chloride 95 mEq/L (98-107); Globulin 3.2 g/dL (2.4-3.5); Glucose 128 mg/dL (70-105); Magnesium 1.6 mg/dL (1.6-2.6); Osmolality,Calculated 289 (280-300); Phosphorous 5.3 mg/dL (2.7-4.5); Potassium 3.8 mEq/L (3.5-5.1); Sodium 137 mEq/L (136-145); Total Protein 8.1 g/dL (6.4-8.9); eGFR For African Americans > 60 (> 60); eGFR For Non-African Americans > 60 (> 60)
[2021-01-25] MEDS ORDERED: Naloxone 0.4 MG/ML INJ IVP PRN (07:33)
[2021-01-25] MEDS ORDERED: Melatonin 3 MG TABLET PO PRN (07:33)
[2021-01-25] MEDS ORDERED: Ondansetron 4 MG/2 ML VIAL IVP PRN (07:33)
[2021-01-25] MEDS ORDERED: *HR* LORazepam 2 MG/ML VIAL IVP PRN (07:37)
[2021-01-25] MEDS: Thiamine (B-1) 100 MG, Folic Acid 1 MG, MVI, adult with vitamin K 10 ML in 0.9 % Sodi... IVPB SCH (09:25)
[2021-01-25] MEDS: 0.9 % Sodium Chloride 1,000 ML IVC SCH ×2 (09:26→23:15)
[2021-01-25 13:54] LABS: Bilirubin,Urine Negative (Negative); Blood,Urine Negative (Negative); Clarity,Urine Clear (Clear); Color,Urine Yellow (Yellow); Glucose,Urine (UA) Normal (Normal); Ketones,Urine 15 mg/dL (Negative); Leukocyte Esterase,Urine Negative (Negative); Nitrite,Urine Negative (Negative); Protein,Urine 30 mg/dL (Neg-Trace); Specific Gravity,Urine 1.025 (1.010-1.025); Urobilinogen,Urine Normal (Normal)
[2021-01-25 14:00] LABS: Hyaline Casts,Urine Few per lpf (None Seen); Mucus,Urine Few per lpf (None-Few); RBC,Urine 0-3 per hpf (0-3); Squamous Epithelial Cell,Urine Few per hpf (None-Few); WBC,Urine 0-3 per hpf (0-3)
[2021-01-25 14:02] LABS: Amphetamine Screen,Urine Negative ng/mL (Cutoff=1000); Barbiturate Screen,Urine Negative ng/mL (Cutoff=200); Benzodiazepines Screen,Urine Negative ng/mL (Cutoff=200); Cannabinoid Screen,Urine Negative ng/mL (Cutoff = 50); Cocaine Screen,Urine Negative ng/mL (Cutoff= 300); Opiate Screen,Urine Negative ng/mL (Cutoff=300); Phencyclidine Screen,Urine Negative ng/mL (Cutoff=25)
[2021-01-26] MEDS: *HR* LORazepam 2 MG/ML VIAL IVP PRN ×4 (00:53→23:30)
[2021-01-26] MEDS: *HR* Enoxaparin 40 MG/0.4 ML SYRINGE SQ SCH (04:28)
[2021-01-26 05:55] LABS: BUN/Creatinine Ratio 14 (6-26); Blood Urea Nitrogen 8 mg/dL (8-23); Calcium 8.1 mg/dL (8.6-10.3); Carbon Dioxide 22 mEq/L (23-29); Chloride 98 mEq/L (98-107); Glucose 81 mg/dL (70-105); Magnesium 1.3 mg/dL (1.6-2.6); Osmolality,Calculated 271 (280-300); Phosphorous 2.3 mg/dL (2.7-4.5); Sodium 132 mEq/L (136-145); eGFR For African Americans > 60 (> 60); eGFR For Non-African Americans > 60 (> 60)
[2021-01-26] MEDS ORDERED: amLODIPine 5 MG TABLET PO PRN (07:55)
[2021-01-26] MEDS: 0.9 % Sodium Chloride 1,000 ML IVC SCH (08:16)
[2021-01-26] MEDS: Nicotine 7 MG PATCH.TD24 TD SCH (08:18)
[2021-01-26] MEDS ORDERED: Potassium Phosphate 44 MEQ in 0.9 % Sodium Chloride 250 ML IVPB ONE (12:04)
[2021-01-26] MEDS ORDERED: Haloperidol Lactate 5 MG/ML VIAL IVP ONE (17:48)
[2021-01-26] MEDS: Thiamine (B-1) 100 MG, Folic Acid 1 MG, MVI, adult with vitamin K 10 ML in 0.9 % Sodi... IVPB SCH (18:00)
[2021-01-27] MEDS: *HR* LORazepam 2 MG/ML VIAL IVP PRN ×7 (00:02→22:16)
[2021-01-27] MEDS ORDERED: Haloperidol Lactate 5 MG/ML VIAL IM ONE (00:28)
[2021-01-27] MEDS: *HR* Enoxaparin 40 MG/0.4 ML SYRINGE SQ SCH (05:02)
[2021-01-27] MEDS: Nicotine 7 MG PATCH.TD24 TD SCH (08:36)
[2021-01-27 10:35] LABS: BUN/Creatinine Ratio 11 (6-26); Blood Urea Nitrogen 7 mg/dL (8-23); Carbon Dioxide 25 mEq/L (23-29); Chloride 103 mEq/L (98-107); Glucose 103 mg/dL (70-105); Lipase 29 Units/L (11-82); Magnesium 1.9 mg/dL (1.6-2.6); Osmolality,Calculated 282 (280-300); Potassium 3.1 mEq/L (3.5-5.1); Sodium 137 mEq/L (136-145); eGFR For African Americans > 60 (> 60); eGFR For Non-African Americans > 60 (> 60)
[2021-01-27] MEDS ORDERED: *HR* LORazepam 2 MG/ML VIAL IM STA (16:50)
[2021-01-27] MEDS: Thiamine (B-1) 100 MG, Folic Acid 1 MG, MVI, adult with vitamin K 10 ML in 0.9 % Sodi... IVPB SCH (19:20)
[2021-01-28] MEDS: *HR* LORazepam 2 MG/ML VIAL IVP PRN ×4 (01:52→20:16)
[2021-01-28] MEDS: *HR* Enoxaparin 40 MG/0.4 ML SYRINGE SQ SCH (05:43)
[2021-01-28 06:36] LABS: BUN/Creatinine Ratio 14 (6-26); Blood Urea Nitrogen 10 mg/dL (8-23); Calcium 9.3 mg/dL (8.6-10.3); Carbon Dioxide 22 mEq/L (23-29); Chloride 102 mEq/L (98-107); Glucose 82 mg/dL (70-105); Magnesium 1.6 mg/dL (1.6-2.6); Osmolality,Calculated 282 (280-300); Phosphorous 3.2 mg/dL (2.7-4.5); Potassium 3.5 mEq/L (3.5-5.1); Sodium 137 mEq/L (136-145); eGFR For African Americans > 60 (> 60); eGFR For Non-African Americans > 60 (> 60)
[2021-01-28] MEDS: Nicotine 7 MG PATCH.TD24 TD SCH (08:44)
[2021-01-28] MEDS: carvediloL 6.25 MG TABLET PO SCH (17:47)
[2021-01-29] MEDS: *HR* Enoxaparin 40 MG/0.4 ML SYRINGE SQ SCH (05:53)
[2021-01-29 06:20] LABS: BUN/Creatinine Ratio 27 (6-26); Blood Urea Nitrogen 21 mg/dL (8-23); Calcium 9.3 mg/dL (8.6-10.3); Carbon Dioxide 20 mEq/L (23-29); Chloride 105 mEq/L (98-107); Glucose 82 mg/dL (70-105); Magnesium 1.7 mg/dL (1.6-2.6); Osmolality,Calculated 286 (280-300); Phosphorous 4.2 mg/dL (2.7-4.5); Potassium 3.6 mEq/L (3.5-5.1); Sodium 137 mEq/L (136-145); eGFR For African Americans > 60 (> 60); eGFR For Non-African Americans > 60 (> 60)
[2021-01-29] MEDS: Nicotine 7 MG PATCH.TD24 TD SCH (11:35)
[2021-01-29] MEDS: carvediloL 6.25 MG TABLET PO SCH ×2 (11:35→16:52)
[2021-01-29] MEDS ORDERED: Acetaminophen 325 MG TABLET PO ONE (16:51)
[2021-01-30] MEDS: *HR* Enoxaparin 40 MG/0.4 ML SYRINGE SQ SCH (05:29)
[2021-01-30 05:30] VITALS: BP 111/75; PULSE 89; TEMP 97.7; O2SAT 97
[2021-01-30] MEDS: carvediloL 6.25 MG TABLET PO SCH (08:37)
[2021-01-30] MEDS: Nicotine 7 MG PATCH.TD24 TD SCH (08:38)
== END 2021-01-30 16:10 | DRG 775 ==
LOC: EMEROOARM 06:00 → 3BNU 06:00 → SUATTDRO 07:52 → 3BNU 08:55
PROVIDERS: ADMIT Hospitalist; ATTEND Internal Medicine

== ENCOUNTER 2021-04-01 13:13 | Inpatient (IN) ==
[2021-04-01] MEDS ORDERED: 0.9 % Sodium Chloride 1,000 ML IVC ONE (13:30)
[2021-04-01 13:49] LABS: Basophils # 0.1 K/mcL (0.0-0.2); Basophils % 1.3 %; Eosinophils % 0.6 %; Hematocrit 46.4 % (37.5-50.1); Hemoglobin 14.9 g/dL (12.9-16.9); Immature Granulocytes % 0.4 % (0-4); Lymphocytes # 1.5 K/mcL (0.6-4.6); Lymphocytes % 30.9 %; Mean Corpuscular HGB Conc 32.1 g/dL (31.6-35.5); Mean Corpuscular Hemoglobin 26.3 pg (28.0-33.3); Monocytes # 0.3 K/mcL (0.0-1.3); Monocytes % 5.5 %; Neutrophils # 2.9 K/mcL (1.6-8.9); Platelet Count 175 K/mcL (140-400); Red Blood Count 5.66 M/mcL (4.19-5.50); Red Cell Distribution Width 24.3 % (11.5-14.5); Segmented Neutrophils % 61.3 %; White Blood Count 4.8 K/mcL (4.3-11.1)
[2021-04-01] MEDS ORDERED: *HR* Rocuronium Bromide 50 MG/5 ML VIAL ONE (13:55)
[2021-04-01] MEDS ORDERED: *HR* Etomidate 20 MG/10 ML AMPUL IVP ONE (13:55)
[2021-04-01 13:58] LABS: INR 0.9; Prothrombin Time 10.4 Seconds (9.4-12.1)
[2021-04-01 14:01] LABS: Activated Partial Thrombo Time 35.5 Seconds (26.0-36.0)
[2021-04-01 14:10] LABS: Anisocytosis 1+ (Not Present); Hypochromasia Present (Not Present); Platelet Estimate Normal (Normal)
[2021-04-01 14:19] LABS: Bilirubin,Urine Negative (Negative); Blood,Urine Negative (Negative); Clarity,Urine Clear (Clear); Color,Urine Yellow (Yellow); Glucose,Urine (UA) Normal (Normal); Ketones,Urine 20 mg/dL (Negative); Leukocyte Esterase,Urine Negative (Negative); Mucus,Urine Few per lpf (None-Few); Nitrite,Urine Negative (Negative); PH,Urine 5.5 pH Units (5.0-8.0); Protein,Urine 70 mg/dL (Neg-Trace); RBC,Urine 0-3 per hpf (0-3); Specific Gravity,Urine 1.025 (1.010-1.025); Squamous Epithelial Cell,Urine Few per hpf (None-Few); Urobilinogen,Urine Normal (Normal); WBC,Urine 0-3 per hpf (0-3)
[2021-04-01 14:47] LABS: Alanine Aminotransferase 17 Units/L (7-52); Albumin 4.6 g/dL (3.5-5.7); Albumin/Globulin Ratio 1.4 (1.1-2.2); Alkaline Phosphatase 51 Units/L (34-104); Aspartate Amino Transferase 31 Units/L (13-39); BUN/Creatinine Ratio 24 (6-26); Bilirubin,Direct 0.1 mg/dL (0.0-0.2); Bilirubin,Indirect 0.2 mg/dL (0.0-1.0); Bilirubin,Total 0.3 mg/dL (0.3-1.0); Blood Urea Nitrogen 24 mg/dL (8-23); Calcium 8.6 mg/dL (8.6-10.3); Carbon Dioxide 19 mEq/L (23-29); Chloride 102 mEq/L (98-107); Ethanol > 600 mg/dL (Less than 10); Globulin 3.3 g/dL (2.4-3.5); Glucose 95 mg/dL (70-105); Osmolality,Calculated 298 (280-300); Potassium 3.9 mEq/L (3.5-5.1); Sodium 142 mEq/L (136-145); Total Protein 7.9 g/dL (6.4-8.9); eGFR For African Americans > 60 (> 60); eGFR For Non-African Americans > 60 (> 60)
[2021-04-01 15:03] LABS: ABG Base Excess -6 mEq/L (-2 to 3); ABG HCO3 21 mEq/L (21-27); ABG Oxygen Saturation 84 % (95-98); ABG PCO2 44 mmHg (35-45); ABG PH 7.29 pH Units (7.32-7.45); ABG PO2 54 mmHg (85-104); ABG TCO2 22 mEq/L (20-26); Blood Gas VT 500 cc
[2021-04-01 15:04] LABS: Amphetamine Screen,Urine Negative ng/mL (Cutoff=1000); Barbiturate Screen,Urine Negative ng/mL (Cutoff=200); Benzodiazepines Screen,Urine Negative ng/mL (Cutoff=200); Cannabinoid Screen,Urine Positive ng/mL (Cutoff = 50); Cocaine Screen,Urine Negative ng/mL (Cutoff= 300); Opiate Screen,Urine Negative ng/mL (Cutoff=300); Phencyclidine Screen,Urine Negative ng/mL (Cutoff=25)
[2021-04-01 15:05] LABS: Troponin I < 0.03 ng/mL (< 0.04)
[2021-04-01 15:47] LABS: Influenza A PCR Negative (Negative); Influenza B PCR Negative (Negative); Resp. Syncytial Virus PCR Negative (Negative)
[2021-04-01 15:59] LABS: SARS-CoV-2 by PCR (In House) Negative (Negative)
[2021-04-01] MEDS ORDERED: Naloxone 0.4 MG/ML INJ IVP PRN (16:22)
[2021-04-01] MEDS ORDERED: Ondansetron 4 MG/2 ML VIAL IVP PRN (16:22)
[2021-04-01] MEDS: Folic Acid 1 MG TABLET PO SCH (17:39)
[2021-04-01] MEDS: Thiamine (B-1) 100 MG TABLET PO SCH (17:39)
[2021-04-01] MEDS: 0.9 % Sodium Chloride 1,000 ML IVC SCH (17:45)
[2021-04-01] MEDS: Pantoprazole 40 MG VIAL IVP SCH (17:46)
[2021-04-01] MEDS: *HR* LORazepam 2 MG/ML VIAL IVP PRN (21:44)
[2021-04-02] MEDS: *HR* LORazepam 2 MG/ML VIAL IVP PRN ×3 (01:19→23:05)
[2021-04-02] MEDS: 0.9 % Sodium Chloride 1,000 ML IVC SCH (01:52)
[2021-04-02 06:13] LABS: Basophils % 0.3 %
[2021-04-02 06:15] LABS: Hematocrit 42.7 % (37.5-50.1); Immature Granulocytes % 0.3 % (0-4); Immature Platelets 5.4 % (1.1-6.1); Lymphocytes # 0.8 K/mcL (0.6-4.6); Lymphocytes % 8.6 %; Mean Corpuscular HGB Conc 30.4 g/dL (31.6-35.5); Mean Corpuscular Hemoglobin 26.3 pg (28.0-33.3); Mean Corpuscular Volume 86.3 fL (83.0-100.0); Mean Platelet Volume 9.7 fL (9.4-12.4); Monocytes # 1.2 K/mcL (0.0-1.3); Monocytes % 12.3 %; Neutrophils # 7.7 K/mcL (1.6-8.9); Platelet Count 101 K/mcL (140-400); Red Blood Count 4.95 M/mcL (4.19-5.50); Red Cell Distribution Width 24.1 % (11.5-14.5); Segmented Neutrophils % 78.5 %; White Blood Count 9.8 K/mcL (4.3-11.1)
[2021-04-02 06:38] LABS: Anisocytosis 1+ (Not Present); Hypochromasia Present (Not Present); Platelet Estimate Slight Decrease (Normal); Target Cells 1+ (Not Present)
[2021-04-02 09:30] LABS: Albumin 4.3 g/dL (3.5-5.7); Albumin/Globulin Ratio 1.4 (1.1-2.2); Bilirubin,Indirect 0.4 mg/dL (0.0-1.0); Bilirubin,Total 0.4 mg/dL (0.3-1.0); Globulin 3.1 g/dL (2.4-3.5); Total Protein 7.4 g/dL (6.4-8.9)
[2021-04-02] MEDS: Nicotine 21 MG PATCH.TD24 TD SCH (10:11)
[2021-04-02] MEDS: Pantoprazole 40 MG VIAL IVP SCH (10:12)
[2021-04-02] MEDS: Folic Acid 1 MG TABLET PO SCH (10:12)
[2021-04-02] MEDS: Thiamine (B-1) 100 MG TABLET PO SCH (10:13)
[2021-04-02 10:35] LABS: BUN/Creatinine Ratio 24 (6-26); Blood Urea Nitrogen 21 mg/dL (8-23); Calcium 8.2 mg/dL (8.6-10.3); Carbon Dioxide 8 mEq/L (23-29); Chloride 109 mEq/L (98-107); Glucose 92 mg/dL (70-105); Magnesium 1.9 mg/dL (1.6-2.6); Osmolality,Calculated 307 (280-300); Phosphorous 3.2 mg/dL (2.7-4.5); Potassium 4.3 mEq/L (3.5-5.1); Sodium 147 mEq/L (136-145); Thyroid Stimulating Hormone 0.711 mcIU/mL (0.340-5.600); eGFR For African Americans > 60 (> 60); eGFR For Non-African Americans > 60 (> 60)
[2021-04-02] MEDS: Sodium Bicarbonate 75 MEQ in 0.45 % Sodium Chloride 1,000 ML IVC SCH (13:41)
[2021-04-02] MEDS ORDERED: Baclofen 10 MG TABLET PO PRN (16:11)
[2021-04-02] MEDS: *HR* Heparin 5,000 UNIT/ML VIAL SQ SCH (20:50)
[2021-04-02] MEDS: traZODone 50 MG TABLET PO SCH (20:50)
[2021-04-02] MEDS: Gabapentin 300 MG CAPSULE PO SCH (20:50)
[2021-04-03] MEDS: Sodium Bicarbonate 75 MEQ in 0.45 % Sodium Chloride 1,000 ML IVC SCH (01:25)
[2021-04-03] MEDS: *HR* Heparin 5,000 UNIT/ML VIAL SQ SCH ×3 (06:52→20:58)
[2021-04-03 09:37] LABS: Basophils % 0.5 %; Immature Granulocytes % 0.2 % (0-4)
[2021-04-03 09:39] LABS: Eosinophils # 0.1 K/mcL (0.0-0.6); Eosinophils % 1.2 %; Hematocrit 30.6 % (37.5-50.1); Hemoglobin 9.9 g/dL (12.9-16.9); Immature Platelets 6.8 % (1.1-6.1); Lymphocytes # 0.8 K/mcL (0.6-4.6); Lymphocytes % 19.6 %; Mean Corpuscular HGB Conc 32.4 g/dL (31.6-35.5); Mean Corpuscular Hemoglobin 26.1 pg (28.0-33.3); Mean Corpuscular Volume 80.7 fL (83.0-100.0); Mean Platelet Volume 10.2 fL (9.4-12.4); Monocytes # 0.4 K/mcL (0.0-1.3); Neutrophils # 2.9 K/mcL (1.6-8.9); Red Blood Count 3.79 M/mcL (4.19-5.50); Red Cell Distribution Width 22.5 % (11.5-14.5); Segmented Neutrophils % 68.5 %; White Blood Count 4.2 K/mcL (4.3-11.1)
[2021-04-03 09:40] LABS: Platelet Count 71 K/mcL (140-400)
[2021-04-03 10:02] LABS: BUN/Creatinine Ratio 14 (6-26); Blood Urea Nitrogen 9 mg/dL (8-23); Calcium 8.1 mg/dL (8.6-10.3); Carbon Dioxide 28 mEq/L (23-29); Chloride 102 mEq/L (98-107); Glucose 123 mg/dL (70-105); Osmolality,Calculated 282 (280-300); Potassium 3.3 mEq/L (3.5-5.1); Sodium 136 mEq/L (136-145); eGFR For African Americans > 60 (> 60); eGFR For Non-African Americans > 60 (> 60)
[2021-04-03] MEDS ORDERED: Potassium Effervescent 25 MEQ TABLET.EFF PO ONE (10:08)
[2021-04-03] MEDS: Pantoprazole 40 MG VIAL IVP SCH (10:46)
[2021-04-03] MEDS: Thiamine (B-1) 100 MG TABLET PO SCH (10:47)
[2021-04-03] MEDS: Folic Acid 1 MG TABLET PO SCH (10:47)
[2021-04-03] MEDS: Nicotine 21 MG PATCH.TD24 TD SCH (10:47)
[2021-04-03] MEDS: *HR* LORazepam 2 MG/ML VIAL IVP PRN (11:00)
[2021-04-03] MEDS: Magnesium Oxide 400 MG TABLET PO SCH ×2 (11:00→20:58)
[2021-04-03] MEDS: Gabapentin 300 MG CAPSULE PO SCH ×2 (19:36→20:58)
[2021-04-03] MEDS: traZODone 50 MG TABLET PO SCH (20:57)
[2021-04-04] MEDS: *HR* LORazepam 2 MG/ML VIAL IVP PRN (03:38)
[2021-04-04] MEDS ORDERED: Baclofen 10 MG TABLET PO PRN (05:31)
[2021-04-04] MEDS ORDERED: Naloxone 0.4 MG/ML INJ IVP PRN (05:31)
[2021-04-04] MEDS ORDERED: *HR* LORazepam 2 MG/ML VIAL IVP PRN ×2 (05:31→14:12)
[2021-04-04] MEDS ORDERED: Ondansetron 4 MG/2 ML VIAL IVP PRN (05:31)
[2021-04-04] MEDS: *HR* Heparin 5,000 UNIT/ML VIAL SQ SCH ×2 (05:57→12:53)
[2021-04-04] MEDS: Pantoprazole 40 MG VIAL IVP SCH (09:27)
[2021-04-04] MEDS: Nicotine 21 MG PATCH.TD24 TD SCH (09:28)
[2021-04-04] MEDS: Thiamine (B-1) 100 MG TABLET PO SCH (09:29)
[2021-04-04] MEDS: Magnesium Oxide 400 MG TABLET PO SCH ×2 (09:29→20:53)
[2021-04-04] MEDS: Folic Acid 1 MG TABLET PO SCH (09:30)
[2021-04-04] MEDS: Gabapentin 300 MG CAPSULE PO SCH ×3 (09:33→20:53)
[2021-04-04 11:28] LABS: Basophils % 0.8 %; Immature Granulocytes % 0.5 % (0-4)
[2021-04-04 11:30] LABS: Eosinophils # 0.1 K/mcL (0.0-0.6); Eosinophils % 1.9 %; Hematocrit 35.4 % (37.5-50.1); Hemoglobin 11.4 g/dL (12.9-16.9); Immature Platelets 8.6 % (1.1-6.1); Lymphocytes # 0.7 K/mcL (0.6-4.6); Lymphocytes % 19.4 %; Mean Corpuscular HGB Conc 32.2 g/dL (31.6-35.5); Mean Corpuscular Hemoglobin 26.5 pg (28.0-33.3); Mean Corpuscular Volume 82.3 fL (83.0-100.0); Monocytes # 0.3 K/mcL (0.0-1.3); Neutrophils # 2.6 K/mcL (1.6-8.9); Red Cell Distribution Width 23.3 % (11.5-14.5); Segmented Neutrophils % 69.4 %; White Blood Count 3.8 K/mcL (4.3-11.1)
[2021-04-04 11:49] LABS: Platelet Count 56 K/mcL (140-400)
[2021-04-04 11:54] LABS: Platelet Estimate Decreased (Normal)
[2021-04-04 11:55] LABS: Anisocytosis 1+ (Not Present); Poikilocytosis 1+ (Not Present); Target Cells 1+ (Not Present)
[2021-04-04 12:12] LABS: BUN/Creatinine Ratio 8 (6-26); Blood Urea Nitrogen 5 mg/dL (8-23); Calcium 9.3 mg/dL (8.6-10.3); Carbon Dioxide 20 mEq/L (23-29); Chloride 100 mEq/L (98-107); Glucose 91 mg/dL (70-105); Magnesium 1.6 mg/dL (1.6-2.6); Osmolality,Calculated 273 (280-300); Potassium 3.9 mEq/L (3.5-5.1); Sodium 133 mEq/L (136-145); eGFR For African Americans > 60 (> 60); eGFR For Non-African Americans > 60 (> 60)
[2021-04-04] MEDS ORDERED: Methyl Salicylate/Menthol 85 APPL/85 GM TUBE TP PRN (12:51)
[2021-04-04] MEDS: Ibuprofen 400 MG TABLET PO PRN (12:54)
[2021-04-04] MEDS: traZODone 50 MG TABLET PO SCH (20:53)
[2021-04-04] MEDS ORDERED: diazePAM 10 MG/2 ML SYRINGE IVP ONE (23:48)
[2021-04-05 05:14] LABS: BUN/Creatinine Ratio 14 (6-26); Blood Urea Nitrogen 10 mg/dL (8-23); Carbon Dioxide 25 mEq/L (23-29); Chloride 100 mEq/L (98-107); Glucose 96 mg/dL (70-105); Osmolality,Calculated 277 (280-300); Potassium 3.6 mEq/L (3.5-5.1); Sodium 134 mEq/L (136-145); eGFR For African Americans > 60 (> 60); eGFR For Non-African Americans > 60 (> 60)
[2021-04-05] MEDS: Gabapentin 300 MG CAPSULE PO SCH ×3 (09:06→19:29)
[2021-04-05] MEDS: Pantoprazole 40 MG VIAL IVP SCH (09:07)
[2021-04-05] MEDS: Folic Acid 1 MG TABLET PO SCH (09:07)
[2021-04-05] MEDS: Thiamine (B-1) 100 MG TABLET PO SCH (09:07)
[2021-04-05] MEDS: Nicotine 21 MG PATCH.TD24 TD SCH (09:07)
[2021-04-05] MEDS: Magnesium Oxide 400 MG TABLET PO SCH ×2 (09:07→19:29)
[2021-04-05] MEDS: *HR* LORazepam 2 MG/ML VIAL IVP PRN ×3 (12:16→21:36)
[2021-04-05] MEDS: traZODone 50 MG TABLET PO SCH (19:29)
[2021-04-05] MEDS ORDERED: Haloperidol Lactate 5 MG/ML VIAL IVP ONE (21:59)
[2021-04-06] MEDS: Nicotine 21 MG PATCH.TD24 TD SCH (07:39)
[2021-04-06] MEDS: Pantoprazole 40 MG VIAL IVP SCH (07:39)
[2021-04-06] MEDS: Thiamine (B-1) 100 MG TABLET PO SCH (07:39)
[2021-04-06] MEDS: Magnesium Oxide 400 MG TABLET PO SCH ×2 (07:40→20:45)
[2021-04-06] MEDS: Folic Acid 1 MG TABLET PO SCH (07:40)
[2021-04-06] MEDS: Gabapentin 300 MG CAPSULE PO SCH ×3 (07:40→20:45)
[2021-04-06] MEDS: traZODone 50 MG TABLET PO SCH (20:45)
[2021-04-07] MEDS: Thiamine (B-1) 100 MG TABLET PO SCH (08:17)
[2021-04-07] MEDS: Pantoprazole 40 MG VIAL IVP SCH (08:17)
[2021-04-07] MEDS: Nicotine 21 MG PATCH.TD24 TD SCH (08:17)
[2021-04-07] MEDS: Magnesium Oxide 400 MG TABLET PO SCH ×2 (08:18→20:13)
[2021-04-07] MEDS: Gabapentin 300 MG CAPSULE PO SCH ×3 (08:18→20:13)
[2021-04-07] MEDS: Folic Acid 1 MG TABLET PO SCH (08:18)
[2021-04-07] MEDS: Ibuprofen 400 MG TABLET PO PRN (08:23)
[2021-04-07] MEDS: traZODone 50 MG TABLET PO SCH (20:14)
[2021-04-08] MEDS: Nicotine 21 MG PATCH.TD24 TD SCH (08:32)
[2021-04-08] MEDS: Folic Acid 1 MG TABLET PO SCH (08:32)
[2021-04-08] MEDS: Thiamine (B-1) 100 MG TABLET PO SCH (08:32)
[2021-04-08] MEDS: Pantoprazole 40 MG VIAL IVP SCH (08:33)
[2021-04-08] MEDS: Magnesium Oxide 400 MG TABLET PO SCH (08:33)
[2021-04-08] MEDS: Gabapentin 300 MG CAPSULE PO SCH (08:33)
[2021-04-08 08:48] VITALS: PULSE 86
[2021-04-08 11:16] VITALS: BP 97/63; TEMP 97.9; O2SAT 95
== END 2021-04-08 12:13 | disposition home or self-care (01) | DRG 775 ==
LOC: EMEROOARM 13:13 → 2NNU 13:13 → SUATTDRO 04-02 15:43 → 3ANU 04-04 05:20
PROVIDERS: ADMIT Internal Medicine; ATTEND Hospitalist

== ENCOUNTER 2021-05-31 12:12 | Inpatient (IN) ==
[2021-05-31] MEDS ORDERED: 0.9 % Sodium Chloride 1,000 ML ONE (12:29)
[2021-05-31] MEDS ORDERED: 0.9 % Sodium Chloride 1,000 ML IVC ONE ×2 (12:30→14:41)
[2021-05-31 13:17] LABS: Basophils % 0.1 %; Mean Corpuscular Hemoglobin 26.9 pg (28.0-33.3)
[2021-05-31 13:19] LABS: Hematocrit 37.6 % (37.5-50.1); Hemoglobin 12.2 g/dL (12.9-16.9); Immature Granulocytes % 0.3 % (0-4); Immature Platelets 21.1 % (1.1-6.1); Lymphocytes % 7.6 %; Mean Corpuscular HGB Conc 32.4 g/dL (31.6-35.5); Mean Corpuscular Volume 82.8 fL (83.0-100.0); Monocytes # 0.9 K/mcL (0.0-1.3); Monocytes % 6.7 %; Nucleated Red Blood Cells 0.1 /100 WBC (0); Red Blood Count 4.54 M/mcL (4.19-5.50); Red Cell Distribution Width 24.3 % (11.5-14.5); Segmented Neutrophils % 85.3 %; White Blood Count 13.4 K/mcL (4.3-11.1)
[2021-05-31 13:24] LABS: Platelet Count 50 K/mcL (140-400)
[2021-05-31 13:25] LABS: Neutrophils # 11.4 K/mcL (1.6-8.9)
[2021-05-31 13:26] LABS: Prothrombin Time 10.6 Seconds (9.4-12.1)
[2021-05-31 13:41] LABS: Alanine Aminotransferase 37 Units/L (7-52); Albumin 4.7 g/dL (3.5-5.7); Albumin/Globulin Ratio 1.3 (1.1-2.2); Alkaline Phosphatase 54 Units/L (34-104); Aspartate Amino Transferase 65 Units/L (13-39); BUN/Creatinine Ratio 12 (6-26); Bilirubin,Direct 0.2 mg/dL (0.0-0.2); Bilirubin,Indirect 0.8 mg/dL (0.0-1.0); Blood Urea Nitrogen 56 mg/dL (8-23); Calcium 10.2 mg/dL (8.6-10.3); Carbon Dioxide 22 mEq/L (23-29); Chloride 88 mEq/L (98-107); Ethanol < 10 mg/dL (Less than 10); Globulin 3.6 g/dL (2.4-3.5); Glucose 116 mg/dL (70-105); Osmolality,Calculated 292 (280-300); Potassium 3.1 mEq/L (3.5-5.1); Sodium 133 mEq/L (136-145); Total Protein 8.3 g/dL (6.4-8.9); Troponin I 0.06 ng/mL (< 0.04); eGFR For African Americans 16 (> 60); eGFR For Non-African Americans 13 (> 60)
[2021-05-31] MEDS ORDERED: *HR* HYDROcodone/Acet 5/325 mg TABLET PO PRN (14:39)
[2021-05-31] MEDS ORDERED: Naloxone 0.4 MG/ML INJ IVP PRN (14:39)
[2021-05-31] MEDS ORDERED: Ondansetron 4 MG/2 ML VIAL IVP PRN (14:39)
[2021-05-31 15:00] LABS: Creatine Kinase 1615 Units/L (30-223)
[2021-05-31] MEDS ORDERED: levoFLOXacin 750 MG/150 ML 750 MG/150 ML BAG IVPB ONE (15:00)
[2021-05-31] MEDS: Sodium Bicarbonate 150 MEQ in 0.45 % Sodium Chloride 1,000 ML IVC SCH (15:37)
[2021-05-31] MEDS: Pantoprazole 40 MG VIAL IVP SCH (17:09)
[2021-05-31 18:30] LABS: Hematocrit 33.1 % (37.5-50.1)
[2021-05-31 18:32] LABS: Hemoglobin 11.1 g/dL (12.9-16.9)
[2021-06-01] MEDS: Sodium Bicarbonate 150 MEQ in 0.45 % Sodium Chloride 1,000 ML IVC SCH (02:50)
[2021-06-01 06:18] LABS: Basophils % 0.2 %; Eosinophils % 0.4 %; Hemoglobin 9.3 g/dL (12.9-16.9); Immature Granulocytes % 0.3 % (0-4); Immature Platelets 14.6 % (1.1-6.1); Lymphocytes % 9.4 %; Mean Corpuscular HGB Conc 34.4 g/dL (31.6-35.5); Mean Corpuscular Hemoglobin 27.7 pg (28.0-33.3); Mean Corpuscular Volume 80.4 fL (83.0-100.0); Monocytes % 9.2 %; Neutrophils # 8.5 K/mcL (1.6-8.9); Red Blood Count 3.36 M/mcL (4.19-5.50); Red Cell Distribution Width 24.3 % (11.5-14.5); Segmented Neutrophils % 80.5 %; White Blood Count 10.6 K/mcL (4.3-11.1)
[2021-06-01] MEDS: Pantoprazole 40 MG VIAL IVP SCH ×2 (06:21→17:56)
[2021-06-01 06:33] LABS: Platelet Count 35 K/mcL (140-400)
[2021-06-01 06:42] LABS: BUN/Creatinine Ratio 14 (6-26); Blood Urea Nitrogen 63 mg/dL (8-23); Calcium 8.2 mg/dL (8.6-10.3); Carbon Dioxide 23 mEq/L (23-29); Chloride 92 mEq/L (98-107); Glucose 92 mg/dL (70-105); Magnesium 1.4 mg/dL (1.6-2.6); Osmolality,Calculated 286 (280-300); Phosphorous < 1.0 mg/dL (2.7-4.5); Potassium 3.1 mEq/L (3.5-5.1); Sodium 129 mEq/L (136-145); eGFR For African Americans 16 (> 60); eGFR For Non-African Americans 13 (> 60)
[2021-06-01] MEDS ORDERED: Potassium Phosphate 44 MEQ in 0.9 % Sodium Chloride 250 ML IVPB ONE (07:28)
[2021-06-01 08:41] LABS: Troponin I 0.04 ng/mL (< 0.04)
[2021-06-01 09:35] LABS: Creatine Kinase 1358 Units/L (30-223)
[2021-06-01] MEDS: 0.9 % Sodium Chloride w KCl 40 MEQ/1,000 ML MLS IVC SCH ×2 (14:53→15:00)
[2021-06-01] MEDS ORDERED: Melatonin 3 MG TABLET PO PRN (23:41)
[2021-06-02 01:36] LABS: Hematocrit 24.2 % (37.5-50.1); Hemoglobin 8.1 g/dL (12.9-16.9); Immature Platelets 11.8 % (1.1-6.1); Mean Corpuscular HGB Conc 33.5 g/dL (31.6-35.5); Mean Corpuscular Hemoglobin 27.4 pg (28.0-33.3); Mean Corpuscular Volume 81.8 fL (83.0-100.0); Red Blood Count 2.96 M/mcL (4.19-5.50); Red Cell Distribution Width 24.8 % (11.5-14.5); White Blood Count 7.7 K/mcL (4.3-11.1)
[2021-06-02 01:37] LABS: Platelet Count 38 K/mcL (140-400)
[2021-06-02 02:58] LABS: BUN/Creatinine Ratio 18 (6-26); Blood Urea Nitrogen 63 mg/dL (8-23); Calcium 8.2 mg/dL (8.6-10.3); Carbon Dioxide 26 mEq/L (23-29); Chloride 96 mEq/L (98-107); Glucose 105 mg/dL (70-105); Magnesium 2.1 mg/dL (1.6-2.6); Osmolality,Calculated 292 (280-300); Phosphorous < 1.0 mg/dL (2.7-4.5); Potassium 3.5 mEq/L (3.5-5.1); Sodium 132 mEq/L (136-145); eGFR For African Americans 22 (> 60); eGFR For Non-African Americans 18 (> 60)
[2021-06-02] MEDS ORDERED: Calcium Gluconate 1gm/50mL 1 GM/50 ML BAG IVPB ONE (03:08)
[2021-06-02] MEDS ORDERED: Potassium Phosphate 44 MEQ in 0.9 % Sodium Chloride 250 ML IVPB ONE (03:45)
[2021-06-02] MEDS: Pantoprazole 40 MG VIAL IVP SCH ×2 (06:18→16:52)
[2021-06-02] MEDS: 0.9 % Sodium Chloride 1,000 ML IVC SCH ×2 (09:27→19:47)
[2021-06-02] MEDS ORDERED: LEVOFLOXACIN 500 MG/100 ML MLS IVPB SCH (15:00)
[2021-06-03 01:58] LABS: Calcium 8.6 mg/dL (8.6-10.3); Magnesium 1.6 mg/dL (1.6-2.6); Phosphorous 2.4 mg/dL (2.7-4.5); Potassium 3.9 mEq/L (3.5-5.1)
[2021-06-03] MEDS: 0.9 % Sodium Chloride 1,000 ML IVC SCH (03:50)
[2021-06-03] MEDS: Pantoprazole 40 MG VIAL IVP SCH (04:34)
[2021-06-03 05:25] LABS: Hemoglobin 8.3 g/dL (12.9-16.9); Immature Granulocytes % 0.4 % (0-4); Lymphocytes % 22.6 %; Red Blood Count 2.96 M/mcL (4.19-5.50)
[2021-06-03 05:27] LABS: Basophils % 0.4 %; Eosinophils # 0.1 K/mcL (0.0-0.6); Eosinophils % 1.3 %; Hematocrit 25.8 % (37.5-50.1); Immature Platelets 12.3 % (1.1-6.1); Immature Reticulocyte % 41.4 % (11.0-38.0); Lymphocytes # 1.2 K/mcL (0.6-4.6); Mean Corpuscular HGB Conc 32.2 g/dL (31.6-35.5); Mean Corpuscular Volume 87.2 fL (83.0-100.0); Monocytes # 0.9 K/mcL (0.0-1.3); Monocytes % 15.7 %; Neutrophils # 3.2 K/mcL (1.6-8.9); Retculocyte # 0.09 M/mcL (0.05-0.10); Segmented Neutrophils % 59.6 %; White Blood Count 5.4 K/mcL (4.3-11.1)
[2021-06-03 05:31] LABS: Platelet Count 53 K/mcL (140-400)
[2021-06-03 06:01] LABS: Anisocytosis 3+ (Not Present)
[2021-06-03 06:02] LABS: Hypochromasia Present (Not Present); Macrocytosis Present (Not Present); Platelet Estimate Decreased (Normal); Stomatocytes 1+ (Not Present)
[2021-06-03 06:03] LABS: Polychromasia 1+ (Not Present)
[2021-06-03 07:50] VITALS: BP 126/72; PULSE 85; TEMP 99.5; O2SAT 97
== END 2021-06-03 12:17 | disposition home health service (06) | DRG 682 ==
LOC: EMEROOARM 12:12 → 2ANU 12:12 → SUATTDRO 06-01 14:56
PROVIDERS: ADMIT Internal Medicine; ATTEND Internal Medicine

== ENCOUNTER 2021-11-19 12:11 | Inpatient (IN) ==
[2021-11-19 13:48] LABS: Acetaminophen < 10 mcg/mL (10-20); BUN/Creatinine Ratio 21 (6-26); Blood Urea Nitrogen 14 mg/dL (8-23); Carbon Dioxide 23 mEq/L (23-29); Chloride 107 mEq/L (98-107); Ethanol 443 mg/dL (Less than 10); Glucose 94 mg/dL (70-105); Osmolality,Calculated 294 (280-300); Potassium 3.6 mEq/L (3.5-5.1); Salicylate < 2.5 mg/dL (15.0-30.0); Sodium 142 mEq/L (136-145)
[2021-11-19 15:43] LABS: Basophils # 0.1 K/mcL (0.0-0.2); Basophils % 1.9 %; Eosinophils # 0.1 K/mcL (0.0-0.6); Eosinophils % 1.3 %; Hematocrit 34.4 % (37.5-50.1); Hemoglobin 10.7 g/dL (12.9-16.9); Immature Granulocytes % 0.3 % (0-4); Lymphocytes # 1.5 K/mcL (0.6-4.6); Lymphocytes % 41.4 %; Mean Corpuscular HGB Conc 31.1 g/dL (31.6-35.5); Mean Corpuscular Hemoglobin 23.6 pg (28.0-33.3); Mean Corpuscular Volume 75.9 fL (83.0-100.0); Mean Platelet Volume 9.2 fL (9.4-12.4); Monocytes # 0.4 K/mcL (0.0-1.3); Neutrophils # 1.6 K/mcL (1.6-8.9); Platelet Count 261 K/mcL (140-400); Red Blood Count 4.53 M/mcL (4.19-5.50); Red Cell Distribution Width 22.7 % (11.5-14.5); Segmented Neutrophils % 44.1 %; White Blood Count 3.7 K/mcL (4.3-11.1)
[2021-11-19 16:39] LABS: Amphetamine Screen,Urine Negative ng/mL (Cutoff=1000); Barbiturate Screen,Urine Negative ng/mL (Cutoff=200); Benzodiazepines Screen,Urine Negative ng/mL (Cutoff=200); Cannabinoid Screen,Urine Positive ng/mL (Cutoff = 50); Cocaine Screen,Urine Negative ng/mL (Cutoff= 300); Opiate Screen,Urine Negative ng/mL (Cutoff=300); Phencyclidine Screen,Urine Negative ng/mL (Cutoff=25)
[2021-11-19 16:42] LABS: Bilirubin,Urine Negative (Negative); Blood,Urine Negative (Negative); Clarity,Urine Clear (Clear); Color,Urine Yellow (Yellow); Glucose,Urine (UA) Normal (Normal); Hyaline Casts,Urine Few per lpf (None Seen); Ketones,Urine Negative (Negative); Leukocyte Esterase,Urine Negative (Negative); Mucus,Urine Few per lpf (None-Few); Nitrite,Urine Negative (Negative); Protein,Urine 100 mg/dL (Neg-Trace); RBC,Urine 0-3 per hpf (0-3); Specific Gravity,Urine 1.022 (1.010-1.025); Urobilinogen,Urine Normal (Normal); WBC,Urine 0-3 per hpf (0-3)
[2021-11-19] MEDS: Nicotine 21 MG PATCH.TD24 TD SCH (20:43)
[2021-11-20] MEDS ORDERED: *HR* LORazepam 2 MG/ML VIAL ONE (06:45)
[2021-11-20] MEDS ORDERED: *HR* LORazepam 2 MG/ML VIAL IVP ONE (06:52)
[2021-11-20] MEDS ORDERED: 0.9 % Sodium Chloride 500 ML IVC ONE (07:30)
[2021-11-20] MEDS ORDERED: Thiamine (B-1) 100 MG in 0.9 % Sodium Chloride 50 ML IVPB ONE (08:00)
[2021-11-20] MEDS ORDERED: Naloxone 0.4 MG/ML INJ IVP PRN (08:38)
[2021-11-20] MEDS ORDERED: *HR* LORazepam 2 MG/ML VIAL IVP PRN ×2 (08:38)
[2021-11-20] MEDS: Nicotine 21 MG PATCH.TD24 TD SCH (13:43)
[2021-11-20] MEDS: lisinopriL 20 MG TABLET PO SCH (15:01)
[2021-11-20] MEDS: *HR* Heparin 5,000 UNIT/ML VIAL SQ SCH (18:38)
[2021-11-20] MEDS: Thiamine (B-1) 100 MG, Folic Acid 1 MG, MVI, adult with vitamin K 10 ML in 0.9 % Sodi... IVPB SCH (19:21)
[2021-11-20] MEDS: *HR* LORazepam 2 MG/ML VIAL IVP PRN (21:21)
[2021-11-21 04:38] LABS: Basophils % 0.7 %; Eosinophils % 0.7 %; Hematocrit 30.1 % (37.5-50.1); Immature Granulocytes % 0.2 % (0-4); Lymphocytes # 1.2 K/mcL (0.6-4.6); Lymphocytes % 21.6 %; Mean Corpuscular HGB Conc 31.9 g/dL (31.6-35.5); Mean Corpuscular Hemoglobin 23.9 pg (28.0-33.3); Mean Corpuscular Volume 74.9 fL (83.0-100.0); Mean Platelet Volume 9.6 fL (9.4-12.4); Monocytes # 0.5 K/mcL (0.0-1.3); Neutrophils # 3.7 K/mcL (1.6-8.9); Platelet Count 181 K/mcL (140-400); Red Blood Count 4.02 M/mcL (4.19-5.50); Red Cell Distribution Width 22.1 % (11.5-14.5); Segmented Neutrophils % 67.8 %; White Blood Count 5.5 K/mcL (4.3-11.1)
[2021-11-21 04:51] LABS: % Iron Saturation 51 % (20-55); Iron 257 mcg/dL (65-175); Transferrin 358 mg/dL (203-362)
[2021-11-21 05:06] LABS: Ferritin 26 ng/mL (20-250)
[2021-11-21 05:15] LABS: Folate > 22.3 ng/mL (3.0-16.0); Vitamin B12 248 pg/mL (250-1100)
[2021-11-21 05:29] LABS: Hemoglobin 9.6 g/dL (12.9-16.9)
[2021-11-21] MEDS: *HR* Heparin 5,000 UNIT/ML VIAL SQ SCH ×2 (05:40→17:02)
[2021-11-21] MEDS: Nicotine 21 MG PATCH.TD24 TD SCH (09:04)
[2021-11-21] MEDS: lisinopriL 20 MG TABLET PO SCH (09:05)
[2021-11-21] MEDS: *HR* LORazepam 2 MG/ML VIAL IVP PRN (20:12)
[2021-11-22] MEDS: Thiamine (B-1) 100 MG, Folic Acid 1 MG, MVI, adult with vitamin K 10 ML in 0.9 % Sodi... IVPB SCH ×2 (01:14→16:32)
[2021-11-22 01:58] LABS: Basophils # 0.1 K/mcL (0.0-0.2); Basophils % 1.1 %; Eosinophils # 0.1 K/mcL (0.0-0.6); Eosinophils % 2.1 %; Hematocrit 28.3 % (37.5-50.1); Hemoglobin 8.9 g/dL (12.9-16.9); Immature Granulocytes % 0.2 % (0-4); Lymphocytes # 1.4 K/mcL (0.6-4.6); Lymphocytes % 28.8 %; Mean Corpuscular HGB Conc 31.4 g/dL (31.6-35.5); Mean Corpuscular Hemoglobin 24.2 pg (28.0-33.3); Mean Corpuscular Volume 76.9 fL (83.0-100.0); Mean Platelet Volume 9.9 fL (9.4-12.4); Monocytes # 0.5 K/mcL (0.0-1.3); Monocytes % 11.4 %; Neutrophils # 2.7 K/mcL (1.6-8.9); Platelet Count 147 K/mcL (140-400); Red Blood Count 3.68 M/mcL (4.19-5.50); Red Cell Distribution Width 22.3 % (11.5-14.5); Segmented Neutrophils % 56.4 %; White Blood Count 4.7 K/mcL (4.3-11.1)
[2021-11-22 02:05] LABS: BUN/Creatinine Ratio 21 (6-26); Blood Urea Nitrogen 15 mg/dL (8-23); Calcium 8.8 mg/dL (8.6-10.3); Carbon Dioxide 24 mEq/L (23-29); Chloride 102 mEq/L (98-107); Glucose 88 mg/dL (70-105); Magnesium 1.6 mg/dL (1.6-2.6); Osmolality,Calculated 278 (280-300); Potassium 3.2 mEq/L (3.5-5.1); Sodium 134 mEq/L (136-145)
[2021-11-22] MEDS: *HR* LORazepam 2 MG/ML VIAL IVP PRN (03:46)
[2021-11-22] MEDS: *HR* Heparin 5,000 UNIT/ML VIAL SQ SCH ×2 (09:48→16:35)
[2021-11-22] MEDS: 0.9 % Sodium Chloride 1,000 ML IVC SCH ×2 (09:48→23:32)
[2021-11-22] MEDS: lisinopriL 20 MG TABLET PO SCH (09:48)
[2021-11-22] MEDS: Nicotine 21 MG PATCH.TD24 TD SCH (09:48)
[2021-11-23] MEDS ORDERED: Ibuprofen 800 MG TABLET PO ONE (02:25)
[2021-11-23] MEDS: *HR* Heparin 5,000 UNIT/ML VIAL SQ SCH ×2 (06:39→16:29)
[2021-11-23] MEDS: Nicotine 21 MG PATCH.TD24 TD SCH (07:33)
[2021-11-23] MEDS: lisinopriL 20 MG TABLET PO SCH (07:33)
[2021-11-23] MEDS: 0.9 % Sodium Chloride 1,000 ML IVC SCH ×2 (10:01→18:11)
[2021-11-23 10:27] LABS: Basophils % 0.9 %; Eosinophils # 0.2 K/mcL (0.0-0.6); Eosinophils % 3.3 %; Hematocrit 29.9 % (37.5-50.1); Hemoglobin 9.2 g/dL (12.9-16.9); Immature Granulocytes % 0.2 % (0-4); Lymphocytes # 1.4 K/mcL (0.6-4.6); Lymphocytes % 30.4 %; Mean Corpuscular HGB Conc 30.8 g/dL (31.6-35.5); Mean Corpuscular Volume 77.9 fL (83.0-100.0); Monocytes # 0.5 K/mcL (0.0-1.3); Monocytes % 10.5 %; Neutrophils # 2.5 K/mcL (1.6-8.9); Platelet Count 106 K/mcL (140-400); Red Blood Count 3.84 M/mcL (4.19-5.50); Red Cell Distribution Width 22.6 % (11.5-14.5); Segmented Neutrophils % 54.7 %; White Blood Count 4.6 K/mcL (4.3-11.1)
[2021-11-23 10:43] LABS: BUN/Creatinine Ratio 18 (6-26); Blood Urea Nitrogen 11 mg/dL (8-23); Calcium 9.1 mg/dL (8.6-10.3); Carbon Dioxide 21 mEq/L (23-29); Chloride 108 mEq/L (98-107); Glucose 86 mg/dL (70-105); Magnesium 1.6 mg/dL (1.6-2.6); Osmolality,Calculated 283 (280-300); Phosphorous 3.2 mg/dL (2.7-4.5); Potassium 3.8 mEq/L (3.5-5.1); Sodium 137 mEq/L (136-145)
[2021-11-23 10:53] LABS: Anisocytosis 2+ (Not Present)
[2021-11-23 10:54] LABS: Hypochromasia Present (Not Present); Poikilocytosis 1+ (Not Present)
[2021-11-23 11:00] LABS: Platelet Estimate Slight Decrease (Normal)
[2021-11-23] MEDS: *HR* LORazepam 0.5 MG TABLET PO SCH ×2 (15:07→21:40)
[2021-11-23] MEDS: Cyanocobalamin (B-12) 1,000 MCG/ML VIAL SQ SCH (16:29)
[2021-11-23] MEDS ORDERED: Iron Sucrose Complex 250 MG in 0.9 % Sodium Chloride 250 ML IVPB SCH (17:00)
[2021-11-23] MEDS ORDERED: traZODone 50 MG TABLET PO ONE (20:15)
[2021-11-23] MEDS: Gabapentin 300 MG CAPSULE PO SCH (21:40)
[2021-11-24 02:17] LABS: Hemoglobin 8.6 g/dL (12.9-16.9); Immature Granulocytes % 0.2 % (0-4)
[2021-11-24 02:19] LABS: Basophils % 0.5 %; Eosinophils # 0.2 K/mcL (0.0-0.6); Eosinophils % 2.7 %; Hematocrit 27.6 % (37.5-50.1); Immature Platelets 8.3 % (1.1-6.1); Lymphocytes # 1.5 K/mcL (0.6-4.6); Lymphocytes % 26.5 %; Mean Corpuscular HGB Conc 31.2 g/dL (31.6-35.5); Mean Corpuscular Volume 77.1 fL (83.0-100.0); Monocytes # 0.5 K/mcL (0.0-1.3); Monocytes % 9.5 %; Neutrophils # 3.3 K/mcL (1.6-8.9); Red Blood Count 3.58 M/mcL (4.19-5.50); Red Cell Distribution Width 22.8 % (11.5-14.5); Segmented Neutrophils % 60.6 %; White Blood Count 5.5 K/mcL (4.3-11.1)
[2021-11-24 02:22] LABS: Platelet Count 93 K/mcL (140-400)
[2021-11-24 02:45] LABS: BUN/Creatinine Ratio 20 (6-26); Blood Urea Nitrogen 12 mg/dL (8-23); Calcium 9.8 mg/dL (8.6-10.3); Carbon Dioxide 22 mEq/L (23-29); Chloride 108 mEq/L (98-107); Glucose 94 mg/dL (70-105); Magnesium 1.5 mg/dL (1.6-2.6); Osmolality,Calculated 284 (280-300); Phosphorous 4.4 mg/dL (2.7-4.5); Potassium 3.9 mEq/L (3.5-5.1); Sodium 137 mEq/L (136-145)
[2021-11-24] MEDS: Nicotine 21 MG PATCH.TD24 TD SCH (08:50)
[2021-11-24] MEDS: Cyanocobalamin (B-12) 1,000 MCG/ML VIAL SQ SCH (08:52)
[2021-11-24] MEDS: lisinopriL 20 MG TABLET PO SCH (08:54)
[2021-11-24] MEDS: Gabapentin 300 MG CAPSULE PO SCH ×3 (08:54→20:54)
[2021-11-24] MEDS: *HR* LORazepam 0.5 MG TABLET PO SCH ×3 (08:54→20:54)
[2021-11-24] MEDS ORDERED: Iron Sucrose Complex 250 MG in 0.9 % Sodium Chloride 250 ML IVPB SCH (12:00)
[2021-11-24] MEDS: *HR* Heparin 5,000 UNIT/ML VIAL SQ SCH (14:08)
[2021-11-24] MEDS ORDERED: traZODone 50 MG TABLET PO ONE (21:15)
[2021-11-24] MEDS ORDERED: Ibuprofen 600 MG TABLET PO ONE (21:15)
[2021-11-25] MEDS: Nicotine 21 MG PATCH.TD24 TD SCH (08:13)
[2021-11-25] MEDS: *HR* LORazepam 0.5 MG TABLET PO SCH ×2 (08:13→14:18)
[2021-11-25] MEDS: lisinopriL 20 MG TABLET PO SCH (08:13)
[2021-11-25] MEDS: Gabapentin 300 MG CAPSULE PO SCH ×2 (08:13→14:18)
[2021-11-25] MEDS ORDERED: Iron Sucrose Complex 250 MG in 0.9 % Sodium Chloride 250 ML IVPB ONE (09:00)
[2021-11-25 11:02] VITALS: BP 134/92; PULSE 90; TEMP 98.1; O2SAT 97
== END 2021-11-25 15:25 | disposition home health service (06) | DRG 897 ==
LOC: EMEROOARM 12:11 → 3BNU 12:11 → SUATTDRO 11-20 08:29 → 2ANU 11-20 09:36 → SUATTDRO 11-22 12:36
PROVIDERS: ADMIT Internal Medicine; ATTEND Pharmacist